=== PATIENT | female | born 1950 | race Caucasian/White ===

== ENCOUNTER 2021-06-20 05:58 | Emergency (ER) | payer MEDICARE, OTHER ==
[~2021-06-20] VITALS: Ht 157.5 cm; Wt 97.7 kg
[2021-06-20] MEDS: METOPROLOL 5 MG/5 ML VIAL IV SCH ×3 (07:00→07:48)
[2021-06-20 07:21] LABS: BASO % 0.2 % (0.0-1.0); EOS # 0.1 10^3/uL (0.0-0.5); HEMATOCRIT 44.3 % (36.0-47.0); HEMOGLOBIN 15.5 g/dl (12.0-15.5); LYMPH # 2.1 10^3/uL (1.5-5.0); LYMPH % 34.8 % (24.0-44.0); MEAN CORPUSCULAR HEMOGLOBIN 30.2 pg (27.0-33.0); MEAN CORPUSCULAR VOLUME 86.4 fl (80.0-96.0); MONO # 0.6 10^3/uL (0.0-0.8); MONO % 9.9 % (2.0-8.0); NEUTROPHILS # 3.3 10^3/uL (1.5-8.5); NEUTROPHILS % 53.8 % (36.0-66.0); PLATELET COUNT, AUTOMATED 203 10^3/uL (150-450); RED BLOOD COUNT 5.13 10^6/uL (4.00-5.40); WHITE BLOOD COUNT 6.1 10^3/uL (4.0-10.0)
[2021-06-20 07:53] LABS: BLOOD UREA NITROGEN 19 MG/DL (7-18); CALCIUM LEVEL 9.4 MG/DL (8.8-10.2); CARBON DIOXIDE LEVEL 30 MEQ/L (21-32); CHLORIDE LEVEL 106 MEQ/L (98-107); CREATININE FOR GFR 0.89 MG/DL (0.55-1.30); GLOMERULAR FILTRATION RATE > 60.0 (>39); GLUCOSE, FASTING 147 MG/DL (70-100); POTASSIUM SERUM 3.5 MEQ/L (3.5-5.1); SODIUM LEVEL 141 MEQ/L (136-145)
--- NOTE | 2021-06-20 07:57 | REPVR ---
PROCEDURE INFORMATION: Exam: XR Chest Exam date and time: 06/20/2021 6:35 AM Age: 71 years old Clinical indication: Other: Chest pain TECHNIQUE: Imaging protocol: XR of the chest. Views: 1 view. COMPARISON: No relevant prior studies available. FINDINGS: Lungs: Hyperinflation and interstitial prominence. Accessory azygos lobe. Pleural spaces: No pleural effusion. Heart/Mediastinum: Borderline cardiomegaly. Bones/joints: Mild degenerative change. IMPRESSION: Hyperinflation and interstitial prominence. Electronically signed by: Lalito Crespo On 06/20/2021 07:57:07 AM
[2021-06-20 08:03] LABS: FREE T4 1.12 NG/DL (0.76-1.46); MAGNESIUM LEVEL 1.4 MG/DL (1.8-2.4); THYROID STIMULATING HORMONE 0.687 uIU/ML (0.358-3.740)
[2021-06-20] MEDS ORDERED: METOPROLOL 5 MG/5 ML VIAL IV STA (08:16)
[2021-06-20] MEDS ORDERED: AMIODARONE HCL 150 MG in IV 1 EA IV STA (08:18)
[2021-06-20] MEDS ORDERED: METOPROLOL 5 MG/5 ML VIAL IV SCH (08:20)
[2021-06-20] MEDS ORDERED: MAG SULF 1GM/100ML (MAG RUN) 1 GM in IV 1 EA IV ONE (09:35)
--- OUTSIDE RECORDS SUMMARY | 2021-06-20 11:43 | CCD ---
Author Author [facility] Organization [facility] Address Unknown Phone Unavailable Care Team Providers Care Credit Card Associate Name Role Phone NO, PCP Unavailable Unavailable LAROCK, Amy MORRIS NP Unavailable Unavailable LAROCK, Amy MORRIS NP Unavailable Unavailable LAROCK, Amy MORRIS NP Unavailable Unavailable LAROCK, Amy MORRIS NP Unavailable Unavailable LAROCK, Amy MORRIS NP Unavailable Unavailable LAROCK, Amy MORRIS NP Unavailable Unavailable LAROCK, Amy MORRIS NP Unavailable Unavailable LAROCK, Amy MORRIS NP Unavailable Unavailable LAROCK, Amy MORRIS NP Unavailable Unavailable LAROCK, Amy MORRIS NP Unavailable Unavailable LAROCK, Amy MORRIS NP Unavailable Unavailable LAROCK, Amy MORRIS NP Unavailable Unavailable LAROCK, Amy MORRIS NP Unavailable Unavailable LAROCK, Amy MORRIS NP Unavailable Unavailable LAROCK, Amy MORRIS NP Unavailable Unavailable LAROCK, Amy MORRIS NP Unavailable Unavailable LAROCK, Amy MORRIS NP Unavailable Unavailable LAROCK, Amy MORRIS NP Unavailable Unavailable LAROCK, Amy MORRIS NP Unavailable Unavailable LAROCK, Amy MORRIS NP Unavailable Unavailable LAROCK, Amy MORRIS NP Unavailable Unavailable LAROCK, Amy MORRIS NP Unavailable Unavailable CAITLIN BARRERA MD Unavailable Unavailable CAITLIN BARRERA MD Unavailable Unavailable CAITLIN BARRERA MD Unavailable Unavailable CAITLIN BARRERA MD Unavailable Unavailable CAITLIN BARRERA MD Unavailable Unavailable CAITLIN BARRERA MD Unavailable Unavailable CAITLIN BARRERA MD Unavailable Unavailable CAITLIN BARRERA MD Unavailable Unavailable SABIHA, MAQBOOL MALA MD Unavailable Unavailable SABIHA, MAQBOOL MALA MD Unavailable Unavailable SABIHA, MAQBOOL MALA MD Unavailable Unavailable SABIHA, MAQBOOL MALA MD Unavailable Unavailable SABIHA, MAQBOOL MALA MD Unavailable Unavailable SABIHA, MAQBOOL MALA MD Unavailable Unavailable SABIHA, MAQBOOL MALA MD Unavailable Unavailable SABIHA, MAQBOOL MALA MD Unavailable Unavailable SABIHA, MAQBOOL MALA MD Unavailable Unavailable SABIHA, MAQBOOL MALA MD Unavailable Unavailable SABIHA, MAQBOOL MALA MD Unavailable Unavailable SABIHA, MAQBOOL MALA MD Unavailable Unavailable SABIHA, MAQBOOL MALA MD Unavailable Unavailable SABIHA, MAQBOOL MALA MD Unavailable Unavailable SABIHA, MAQBOOL MALA MD Unavailable Unavailable SABIHA, MAQBOOL MALA MD Unavailable Unavailable SABIHA, MAQBOOL MALA MD Unavailable Unavailable SABIHA, MAQBOOL MALA MD Unavailable Unavailable SABIHA, MAQBOOL MALA MD Unavailable Unavailable SABIHA, MAQBOOL MALA MD Unavailable Unavailable SABIHA, MAQBOOL MALA MD Unavailable Unavailable SABIHA, MAQBOOL MALA MD Unavailable Unavailable SABIHA, MAQBOOL MALA MD Unavailable Unavailable SABIHA, MAQBOOL MALA MD Unavailable Unavailable SABIHA, MAQBOOL MALA MD Unavailable Unavailable SABIHA, MAQBOOL MALA MD Unavailable Unavailable SABIHA, MAQBOOL MALA MD Unavailable Unavailable SABIAH, MAQBOOL MALA MD Unavailable Unavailable SABIHA, MAQBOOL MALA MD Unavailable Unavailable SABIHA, MAQBOOL MALA MD Unavailable Unavailable SABIHA, MAQBOOL MALA MD Unavailable Unavailable SABIHA, MAQBOOL MALA MD Unavailable Unavailable SABIHA, MAQBOOL MALA MD Unavailable Unavailable SABIHA, MAQBOOL MALA MD Unavailable Unavailable SABIHA, MAQBOOL MALA MD Unavailable Unavailable SABIHA, MAQBOOL MALA MD Unavailable Unavailable SABIHA, MAQBOOL MALA MD Unavailable Unavailable SABIHA, MAQBOOL MALA MD Unavailable Unavailable SABIHA, MAQBOOL MALA MD Unavailable Unavailable SABIHA, MAQBOOL MALA MD Unavailable Unavailable SABIHA, MAQBOOL MALA MD Unavailable Unavailable SABIHA, MAQBOOL MALA MD Unavailable Unavailable SABIHA, MAQBOOL MALA MD Unavailable Unavailable SABIHA, MAQBOOL MALA MD Unavailable Unavailable SABIHA, MAQBOOL MALA MD Unavailable Unavailable SABIHA, MAQBOOL MALA MD Unavailable Unavailable SABIHA, MAQBOOL MALA MD Unavailable Unavailable SABIHA, MAQBOOL MALA MD Unavailable Unavailable SABIHA, MAQBOOL MALA MD Unavailable Unavailable SABIHA, MAQBOOL MALA MD Unavailable Unavailable SABIHA, MAQBOOL MALA MD Unavailable Unavailable SABIHA, MAQBOOL MALA MD Unavailable Unavailable SABIHA, MAQBOOL MALA MD Unavailable Unavailable SABIHA, MAQBOOL MALA MD Unavailable Unavailable SABIHA, MAQBOOL MALA MD Unavailable Unavailable SABIHA, MAQBOOL MALA MD Unavailable Unavailable SABIHA, MAQBOOL MALA MD Unavailable Unavailable SABIHA, MAQBOOL MALA MD Unavailable Unavailable SABIHA, MAQBOOL MALA MD Unavailable Unavailable SABIHA, MAQBOOL MALA MD Unavailable Unavailable SABIHA, MAQBOOL MALA MD Unavailable Unavailable SABIHA, MAQBOOL MALA MD Unavailable Unavailable SABIHA, MAQBOOL MALA MD Unavailable Unavailable SABIHA, MAQBOOL MALA MD Unavailable Unavailable SABIHA, MAQBOOL MALA MD Unavailable Unavailable SABIHA, MAQBOOL MALA MD Unavailable Unavailable SABIHA, MAQBOOL MALA MD Unavailable Unavailable SABIHA, MAQBOOL MALA MD Unavailable Unavailable SABIHA, MAQBOOL MALA MD Unavailable Unavailable SABIHA, MAQBOOL MALA MD Unavailable Unavailable NONE Unavailable Unavailable SABIHA, MAQBOOL MALA MD Unavailable Unavailable SABIHA, MAQBOOL MALA MD Unavailable Unavailable SABIHA, MAQBOOL MALA MD Unavailable Unavailable SABIHA, MAQBOOL MALA MD Unavailable Unavailable SABIHA, MAQBOOL MALA MD Unavailable Unavailable SABIHA, MAQBOOL MALA MD Unavailable Unavailable SABIHA, MAQBOOL MLAA MD Unavailable Unavailable SABIHA, MAQBOOL MALA MD Unavailable Unavailable SABIHA, MAQBOOL MALA MD Unavailable Unavailable SABIHA, MAQBOOL MALA MD Unavailable Unavailable SABIHA, MAQBOOL MALA MD Unavailable Unavailable SABIHA, MAQBOOL MALA MD Unavailable Unavailable SABIHA, MAQBOOL MALA MD Unavailable Unavailable SABIHA, MAQBOOL MALA MD Unavailable Unavailable SABIHA, MAQBOOL MALA MD Unavailable Unavailable SABIHA, MAQBOOL MALA MD Unavailable Unavailable SABIHA, MAQBOOL MALA MD Unavailable Unavailable SABIHA, MAQBOOL MALA MD Unavailable Unavailable SABIHA, MAQBOOL MALA MD Unavailable Unavailable SABIHA, MAQBOOL MALA MD Unavailable Unavailable SABIHA, MAQBOOL MALA MD Unavailable Unavailable SABIHA, MAQBOOL MALA MD Unavailable Unavailable SABIHA, MAQBOOL MALA MD Unavailable Unavailable SABIHA, MAQBOOL MALA MD Unavailable Unavailable SABIHA, MAQBOOL MALA MD Unavailable Unavailable SABIHA, MAQBOOL MLAA MD Unavailable Unavailable SABIHA, MAQBOOL MALA MD Unavailable Unavailable SABIHA, MAQBOOL MALA MD Unavailable Unavailable SABIHA, MAQBOOL MALA MD Unavailable Unavailable SABIHA, MAQBOOL MALA MD Unavailable Unavailable SABIHA, MAQBOOL MALA MD Unavailable Unavailable SABIHA, MAQBOOL MALA MD Unavailable Unavailable SABIHA, MAQBOOL MALA MD Unavailable Unavailable SABIHA, MAQBOOL MALA MD Unavailable Unavailable SABIHA, MAQBOOL MALA MD Unavailable Unavailable SABIHA, MAQBOOL MALA MD Unavailable Unavailable SABIHA, MAQBOOL MALA MD Unavailable Unavailable SABIHA, MAQBOOL MALA MD Unavailable Unavailable SABIHA, MAQBOOL MALA MD Unavailable Unavailable SABIHA, MAQBOOL MALA MD Unavailable Unavailable SABIHA, MAQBOOL MALA MD Unavailable Unavailable SABIHA, MAQBOOL MALA MD Unavailable Unavailable SABIHA, MAQBOOL MALA MD Unavailable Unavailable SABIAH, MAQBOOL MALA MD Unavailable Unavailable SABIHA, MAQBOOL AMLA MD Unavailable Unavailable SABIHA, MAQBOOL MALA MD Unavailable Unavailable SABIHA, MAQBOOL MALA MD Unavailable Unavailable SABIHA, MAQBOOL MALA MD Unavailable Unavailable SABIHA, MAQBOOL MALA MD Unavailable Unavailable SABIHA, MAQBOOL MALA MD Unavailable Unavailable SABIHA, MAQBOOL MALA MD Unavailable Unavailable SABIHA, MAQBOOL MALA MD Unavailable Unavailable SABIHA, MAQBOOL MALA MD Unavailable Unavailable SABIHA, MAQBOOL MALA MD Unavailable Unavailable SABIHA, MAQBOOL MALA MD Unavailable Unavailable SABIHA, MAQBOOL MALA MD Unavailable Unavailable SABIHA, MAQBOOL MALA MD Unavailable Unavailable SABIHA, MAQBOOL MALA MD Unavailable Unavailable SABIHA, MAQBOOL MALA MD Unavailable Unavailable SABIHA, MAQBOOL MALA MD Unavailable Unavailable SABIHA, MAQBOOL MALA MD Unavailable Unavailable SABIHA, MAQBOOL MALA MD Unavailable Unavailable SABIHA, MAQBOOL MALA MD Unavailable Unavailable SABIHA, MAQBOOL MALA MD Unavailable Unavailable SABIHA, MAQBOOL MALA MD Unavailable Unavailable SABIHA, MAQBOOL MALA MD Unavailable Unavailable SABIHA, MAQBOOL MALA MD Unavailable Unavailable SABIHA, MAQBOOL MALA MD Unavailable Unavailable SABIHA, MAQBOOL AMLA MD Unavailable Unavailable SABIHA, MAQBOOL MALA MD Unavailable Unavailable SABIHA, MAQBOOL MALA MD Unavailable Unavailable SABIHA, MAQBOOL MALA MD Unavailable Unavailable SABIHA, MAQBOOL MALA MD Unavailable Unavailable SABIHA, MAQBOOL MALA MD Unavailable Unavailable SABIHA, MAQBOOL MALA MD Unavailable Unavailable SABIHA, MAQBOOL MALA MD Unavailable Unavailable SABIHA, MAQBOOL MALA MD Unavailable Unavailable SABIHA, MAQBOOL MALA MD Unavailable Unavailable Antione SANDHU MD Unavailable Unavailable Antione SANDHU MD Unavailable Unavailable Antione SANDHU MD Unavailable Unavailable Antione SANDHU MD Unavailable Unavailable Antione SANDHU MD Unavailable Unavailable Antione SANDHU MD Unavailable Unavailable Antione SANDHU MD Unavailable Unavailable Antione SANDHU MD Unavailable Unavailable CHANMANDYCO, C LAUREL MD Unavailable Unavailable Antione SANDHU MD Unavailable Unavailable Antione SANDHU MD Unavailable Unavailable Re-disclosure Warning The records that you are about to access may contain information from federally-assisted alcohol or drug abuse programs. If such information is present, then the following federally mandated warning applies: This information has been disclosed to you from records protected by federal confidentiality rules (42 CFR part 2). The federal rules prohibit you from making any further disclosure of this information unless further disclosure is expressly permitted by the written consent of the person to whom it pertains or as otherwise permitted by 42 CFR part 2. A general authorization for the release of medical or other information is NOT sufficient for this purpose. The Federal rules restrict any use of the information to criminally investigate or prosecute any alcohol or drug abuse patient.The records that you are about to access may contain highly sensitive health information, the redisclosure of which is protected by Article 27-F of the [facility] Public Health law. If you continue you may have access to information: Regarding HIV / AIDS; Provided by facilities licensed or operated by the [facility] Office of Mental Health; or Provided by the [facility] Office for People With Developmental Disabilities. If such information is present, then the following [facility] mandated warning applies: This information has been disclosed to you from confidential records which are protected by state law. State law prohibits you from making any further disclosure of this information without the specific written consent of the person to whom it pertains, or as otherwise permitted by law. Any unauthorized further disclosure in violation of state law may result in a fine or senior care sentence or both. A general authorization for the release of medical or other information is NOT sufficient authorization for further disc losure. Allergies and Adverse Reactions Type Description Substance Reaction Status Data Source(s ) No Known Drug Allergies No Known Drug Allergies [facility] Encounters Encounter Providers Location Date Indications Data Source(s ) Outpatient 05/06/2021 02:30:31 PM EDT - 021 03:01:28 PM EDT [facility] ([facility]) Outpatient Attender: MALA BARRERA MDConsultant: PCP NO 03/13/2021 02:21:00 PM EDT - 03/13/2021 03:21:00 PM EDT [facility] Attender: MALA BARRERA MD Medical Building 03/13 01:45:00 PM EDT [facility] (Mala Barrera [facility]) Emergency Attender: LAUREL SANDHU MDConsultant: PCP NOConsultant: NONE 02/20/2021 02:07:00 PM EDT - 02/20/2021 04:54:00 PM EDT [facility] Patient discharged. Outpatient Attender: ARTURO PARRA NP 12/21 08:14:13 AM EDT - 01/01/2021 08:22:44 AM EDT [facility] ([facility] ) Immunizations Vaccine Date Status Description Data Source(s) COVID-19 VACCINE Moderna 11/01/2020 12:00:00 AM EST completed [facility] Vaccine Series Complete: YESThis Data wa s Submitted to [facility] Via [facility]. COVID-19 VACCINE Moderna 10/04/2020 12:00:00 AM EST completed [facility] Vaccine Series Complete: NOThis Data was Submitted to [facility] [employer]. Medications Medication Brand Name Start Date Product Form Dose Route Admi nistrative Instructions Pharmacy Instructions Status Indications Reaction Description Data Source(s) Magnesium Oxide 400 MG Oral Tablet Magnesium Oxide 03/19/2021 12:00 :00 AM EDT ORAL active [facility] (Mala Barrera MD) Aspirin 81 MG Delayed Release Oral Tablet Aspirin 03/13/2021 1 2:00:00 AM EDT ORAL active [facility] (Mala Barrera MD) Insurance Providers Payer name Policy type / Coverage type Policy ID Covered green party ID Covered green party's relationship to lamar Policy Lamar Plan Information [place] [employer] [place] B [id number] Self [id number] / [id number] Self [id number] Self 01 [id number] [place] [employer] Medicare [place] B [id number] Self [id number] MEDICARE PART A -O/P [id number] 18 [id number] FOR LIFE -I/P [id number] 18 [id number] MEDICARE PART A -I/P [id number] 18 [id number] FOR LIFE -I/P [id number] 18 [id number] FOR LIFE [id number] [id number] FOR LIFE -O/P [id number] 18 [id number] MEDICARE [id number] MEDICARE PART A -O/P [id number] 18 [id number] FOR LIFE -O/P [id number] 18 [id number] Problems, Conditions, and Diagnoses Code Display Name Description Problem Type Effective Dates Data Source(s) M109 Gout, unspecified Gout, unspecified [id number]omagnesemia Hypomagnesemia Diagnosis 03/13/2021 02:21: 00 PM [facility] N390 Urinary tract infection, site not specif ied Urinary tract infection, site not specified Diagnosis 03/13/2021 02:21:00 PM [facility] E039 Hypothyroidism, unspecified Hypothyroidism, unspecifie d Diagnosis 03/13/2021 02:21:00 PM [facility] E785 Hyperlipidemia, unspecified Hyperlipidemia, unspecifie d Diagnosis 03/13/2021 02:21:00 PM [facility] D649 Anemia, unspecified Anemia, unspecified Diagnosis 0 03/13/2021 02:21:00 PM [facility] E119 Type 2 diabetes mellitus without complic ations Type 2 diabetes mellitus without complications Diagnosis [facility] Personal history of malignant neoplasm o f other parts of uterus Personal history of malignant neoplasm of other parts of uterus Diagnosis 02/20/2021 02:07:00 PM [facility] 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 (cu 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) use of aspirin Diagnosis 02/20/2021 02:07:00 PM [facility] I509 Heart failure, unspecified Heart failure, unspecified Diagnosis 02/20/2021 02:07:00 PM [facility] I110 Hypertensive heart disease with heart fa ilure Hypertensive heart disease with heart failure Diagnosis 02/20/2021 02:07:00 PM EDT [facility] [id number] Cellulitis of chest wall Cellulitis of chest wall Diag nosis 02/20/2021 02:07:00 PM EDT [facility] [id number] Cellulitis of face Cellulitis of face Diagnosis 08/2020 02:07:00 PM EDT [facility] L237 Allergic contact dermatitis due to plant s, except food Allergic contact dermatitis due to plants, except food Diagnosis 02/20/2021 02:07:00 PM EDT [facility] R21 Rash and other nonspecific skin eruption Rash and other nonspecific skin eruption Diagnosis 02/20/2021 02:07:00 PM EDT [facility] Surgeries/Procedures Procedure Description Date Indications Data Source(s) OFFICE OUTPATIENT NEW 45 MINUTES 03/13/2021 12:00:00 A M EDT [facility] (Mala Barrera MD) Results ID Date Data Source [id number] 05/06/2021 03:00:00 PM EDT [facility] Name Value Range Interpretation Code Description Data Anisha rce(s) Supporting Document(s) SARS-CoV-2 RNA Resp Ql YUAN+probe NOT DETECTED [facility] This lab was ordered by TALON carmona and reported by TALON Hawkins. ID Date Data Source [id number] 03/13/2021 02:26:00 PM EDT [facility] (Mala Barrera MD) Name Value Range Interpretation Code Description Data Anisha rce(s) Supporting Document(s) Laboratory test finding (navigational concept) 81.9 pg/mL 0.0-191.8 [facility] (Mala Barrera MD) Laboratory test finding (navigational concept) Laboratory test result [facility] (Mala Barrera MD) Test(s) [id number]-[address], Pl; [address] 23-Metanephrine, Pl was developed and its performance characteristics determined by [facility]. It has not been cleared or approved by the Food and Drug Administration. Laboratory test finding (navigational concept) 33.0 pg/mL 0.0-88.0 [facility] (Mala Barrera MD) ID Date Data Source [id number] 03/13/2021 02:26:00 PM EDT [facility] (Mala Barrera MD) Name Value Range Interpretation Code Description Data Anisha rce(s) Supporting Document(s) Thyrotropin [Units/volume] in Serum or Plasma by Detec tion limit <= 0.005 mIU/L 0.80 uIU/mL 0.47-5.01 [facility] (Mala Barrera MD) ID Date Data Source [id number] 03/13/2021 02:26:00 PM EDT [facility] (Mala Barrera MD) Name Value Range Interpretation Code Description Data Anisha rce(s) Supporting Document(s) Laboratory test finding (navigational concept) Laboratory test result [facility] (Mala Barrera MD) LIPID PANEL Laboratory test finding (navigational concept) 103 mg/dL 35-160 [facility] (Mala Barrera MD) Laboratory test finding (navigational concept) 230 mg/dL 1 31-200 Above high normal [facility] (Mala Barrera MD) Laboratory test finding (navigational concept) 2.7 3.2-4.4 Below low normal [facility] (Mala Barrera MD) Laboratory test finding (navigational concept) 85 mg/dL 29-86 [facility] (Mala Barrera MD) Laboratory test finding (navigational concept) 141 mg/dL 65-175 [facility] (Mala Barrera MD) Laboratory test finding (navigational concept) 1.66 1.47-3.22 [facility] (Mala Barrera MD) CVE RISK CHOL/HDL LDL/HDL MEN: 1/2 AVERAGE 3.43 1.00 AVERAGE 4.97 3.55 2X AVERAGE 9.55 6.25 3X AVERAGE 23.99 7.99 WOMEN: 1/2 AVERAGE 3.27 1.47 AVERAGE 4.44 3.22 2X AVERAGE 7.05 5.03 3X AVERAGE 11.04 6.14 ID Date Data Source [id number] 03/13/2021 02:26:00 PM EDT [facility] (Mala Barrera MD) Name Value Range Interpretation Code Description Data Anisha rce(s) Supporting Document(s) Laboratory test finding (navigational concept) Laboratory test result [facility] (Mala Barrera MD) COMPREHENSIVE METABOLIC PANEL Laboratory test finding (navigational concept) 140 meq/L 134-153 [facility] (Mala Barrera MD) Laboratory test finding (navigational concept) 103 meq/L 98-107 [facility] (Mala Barrera MD) Laboratory test finding (navigational concept) 3.9 meq/L 3.6-5.0 [facility] (Mala Barrera MD) Laboratory test finding (navigational concept) 94 mg/dL 70-99 [facility] (Mala Barrera MD) Laboratory test finding (navigational concept) 24 meq/L 22-30 [facility] (Mala Barrera MD) Laboratory test finding (navigational concept) 16 mg/dL 7-21 [facility] (Mala Barrera MD) Laboratory test finding (navigational concept) 0.7 mg/dL 0.7-1.5 [facility] (Mala Barrera MD) Laboratory test finding (navigational concept) 4.5 g/dL 3.9-5.0 [facility] (Mala Barrera MD) Laboratory test finding (navigational concept) 6.8 g/dL 6.3-8.2 [facility] (Mala Barrera MD) Laboratory test finding (navigational concept) 23 8-27 [facility] (Mala Barrera MD) Laboratory test finding (navigational concept) 2.3 GM/DL 2 .4-3.2 Below low normal [facility] (Mala Barrera MD) Laboratory test finding (navigational concept) 2.0 0.8-2.0 [facility] (Mala Barrera MD) Laboratory test finding (navigational concept) 0.7 mg/dL 0.2-1.3 [facility] (Mala Barrera MD) Laboratory test finding (navigational concept) 9.0 mg/dL 8.4-10.2 [facility] (Mala Barrera MD) Laboratory test finding (navigational concept) 78 U/L 38-126 [facility] (Mala Barrera MD) Laboratory test finding (navigational concept) 21 U/L 5-40 [facility] (Mala Barrera MD) Laboratory test finding (navigational concept) 70 yrs [facility] (Mala Barrera MD) Laboratory test finding (navigational concept) 13.0 mmol/L 8.0-16.0 [facility] (Mala Barrera MD) Laboratory test finding (navigational concept) 16 U/L 7-56 [facility] (Mala Barrera MD) Laboratory test finding (navigational concept) Laboratory test result [facility] (Mala Barrera MD) Male GFR Interprentation 20-49 yrs >60 mL/min Normal 50-59 yrs >56 mL/min Normal 60-69 yrs >49 mL/min Normal 70-79yrs >42 mL/min Normal 80 and above >35 mL/min Normal Female GFR Interpretation 20-39 yrs >60 mL/min Normal 40-49 yrs >58 mL/min Normal 50-59 yrs >51 mL/min Normal 60-69 yrs >45 mL/min Normal 70-79 yrs >39 mL/min Normal 80 and above >32 mL/min Normal Laboratory test finding (navigational concept) Laboratory test result [facility] (Mala Barrera MD) ID Date Data Source [id number] 03/13/2021 02:26:00 PM EDT [facility] (Mala Barrera MD) Name Value Range Interpretation Code Description Data Anisha rce(s) Supporting Document(s) Urate [Mass/volume] in Serum or Plasma 4.7 mg/dL 2.5-8.5 [facility] (Mala Barrera MD) Hemoglobin A1c/Hemoglobin.total in Blood 5.5 % 4.4-6.1 [facility] (Mala Barrera MD) {A1] {HB] Magnesium [Mass/volume] in Serum or Plasma 1.4 mg/dL 1.7-2.2 Belo w low normal [facility] (Mala Barrera MD) ID Date Data Source [id number] 03/13/2021 02:26:00 PM EDT [facility] (Mala Barrera MD) Name Value Range Interpretation Code Description Data Anisha rce(s) Supporting Document(s) Laboratory test finding (navigational concept) Laboratory test result [facility] (Mala Barrera MD) URINALYSIS Laboratory test finding (navigational concept) Laboratory test result [facility] (Mala Barrera MD) Laboratory test finding (navigational concept) Laboratory test result [facility] (Mala Barrera MD) Laboratory test finding (navigational concept) Laboratory test result [facility] (Mala Barrera MD) Laboratory test finding (navigational concept) 1.005 1.001-1.030 [facility] (Mala Barrera MD) Laboratory test finding (navigational concept) 5 5-9 [facility] (Mala Barrera MD) Laboratory test finding (navigational concept) Laboratory test result [facility] (Mala Barrera MD) Laboratory test finding (navigational concept) Laboratory test result [facility] (Mala Barrera MD) Laboratory test finding (navigational concept) Laboratory test result [facility] (Mala Barrera MD) Laboratory test finding (navigational concept) Laboratory test result [facility] (Mala Barrera MD) Laboratory test finding (navigational concept) Laboratory test result [facility] (Mala Barrera MD) Laboratory test finding (navigational concept) Laboratory test result [facility] (Mala Barrera MD) Laboratory test finding (navigational concept) Laboratory test result [facility] (Mala Barrera MD) Laboratory test finding (navigational concept) Laboratory test result [facility] (Mala Barrera MD) Laboratory test finding (navigational concept) Laboratory test result [facility] (Mala Barrera MD) ID Date Data Source [id number] 03/13/2021 02:26:00 PM EDT [facility] (Mala Barrera MD) Name Value Range Interpretation Code Description Data Anisha rce(s) Supporting Document(s) Laboratory test finding (navigational concept) Laboratory test result [facility] (Mala Barrera MD) COMPLETE BLOOD COUNT Laboratory test finding (navigational concept) 5.17 10^6/uL 4.20-5.40 [facility] (Mala Barrera MD) Laboratory test finding (navigational concept) 5.2 10^3/uL 4.2-11.0 [facility] (Mala Barrera MD) Laboratory test finding (navigational concept) 15.7 g/dL 12.0-16.0 [facility] (Mala Barrera MD) Laboratory test finding (navigational concept) 85.5 fL 81.0-101 [facility] (Mala Barrera MD) Laboratory test finding (navigational concept) 44.2 % 37.0-47.0 [facility] (Mala Barrera MD) Laboratory test finding (navigational concept) 35.5 g/dL 31.0-36.0 [facility] (Mala Barrera MD) Laboratory test finding (navigational concept) 30.4 pg 27.0-34.0 [facility] (Mala Barrera MD) Laboratory test finding (navigational concept) 203 10^3/uL 150-450 [facility] (Mala Barrera MD) Laboratory test finding (navigational concept) 11.9 % 11.5-14.5 [facility] (Mala Barrera MD) Laboratory test finding (navigational concept) 10.3 fL 7.4-10.4 [facility] (Mala Barrera MD) Laboratory test finding (navigational concept) 52.6 % 37.0-80.0 [facility] (Mala Barrera MD) Laboratory test finding (navigational concept) 37.3 % 25.0-40.0 [facility] (Mala Barrera MD) Laboratory test finding (navigational concept) 9.1 % 3.0-8.0 Above high normal [facility] (Mala Barrera MD) Laboratory test finding (navigational concept) 0.8 % 0.0-7.0 [facility] (Mala Barrera MD) Laboratory test finding (navigational concept) 0.2 % 0.0-2.5 [facility] (Mala Barrera MD) Laboratory test finding (navigational concept) 0.0 % 0.0-0.0 [facility] (Mala Barrera MD) Laboratory test finding (navigational concept) 0.0 % 0.0-0.0 [facility] (Mala Barrera MD) Laboratory test finding (navigational concept) 1.93 10^3/uL 0.60-3.40 [facility] (Mala Barrera MD) Laboratory test finding (navigational concept) 2.72 10^3/uL 2.00-6.90 [facility] (Mala Barrera MD) Laboratory test finding (navigational concept) 0.47 10^3/uL 0.00-0.90 [facility] (Mala Barrera MD) Laboratory test finding (navigational concept) 0.04 10^3/uL 0.00-0.70 [facility] (Mala Barrera MD) Laboratory test finding (navigational concept) 0.01 10^3/uL 0.00-0.20 [facility] (Mala Barrera MD) Laboratory test finding (navigational concept) 0.00 10^3/uL 0.00-0.00 [facility] (Mala Barrera MD) Laboratory test finding (navigational concept) 0.00 10^3/uL 0.00-0.10 [facility] (Mala Barrera MD) Laboratory test finding (navigational concept) Laboratory test result [facility] (Mala Barrera MD) Laboratory test finding (navigational concept) Laboratory test result [facility] (Mala Barrera MD) ID Date Data Source [id number] 03/21/2021 06:32:[address] [facility] Value Range Interpretation Code Description Data Anisha rce(s) Supporting Document(s) METANEPHRINE FRACTIONATED [facility] Test(s) 871447-Fzzctsvczaknutd, Pl; 0700 23-Metanephrine, Plwas developed and its performance characteristics determinedby [facility]. It has not been cleared or approved by the Foodand Drug Administration. Normetanephrine [Mass/volume] in Serum or Plasma 81.9 pg/mL 0.0-191.8 [facility] Metanephrine Free [Mass/volume] in Serum or Plasma 33.0 pg/mL 0.0-88. 0 [facility] ID Date Data Source [id number] 03/13/2021 07:18:[address] [facility] Value Range Interpretation Code Description Data Anisha rce(s) Supporting Document(s) Magnesium [Mass/volume] in Serum or Plasma 1.4 MG/DL 1.7 - 2.2 L [facility] ID Date Data Source [id number] 03/13/2021 07:25:[address] [facility] Value Range Interpretation Code Description Data Anisha rce(s) Supporting Document(s) Thyrotropin [Units/volume] in Serum or Plasma by Detec tion limit <= 0.05 mIU/L 0.80 uIU/mL 0.47 - 5.01 [facility] ID Date Data Source [id number] 03/13/2021 07:18:00 PM EDT [facility] Name Value Range Interpretation Code Description Data Anisha rce(s) Supporting Document(s) CVE PANEL [facility] al LIPID PANEL Cholesterol [Mass/volume] in Serum or Plasma 230 MG/DL 131 - 200 H [facility] Deprecated Triglyceride [Mass/volume] in Serum or Plasma 103 MG/DL 3 5 - 160 [facility] HDL 85 MG/DL 29 - 86 [facility] Cholesterol in LDL [Mass/volume] in Serum or Plasma by Direc t assay 141 mg/dL 65 - 175 [facility] Cholesterol.total/Cholesterol in HDL [Mass Ratio] in Serum o r Plasma 2.7 3.2 - 4.4 L [facility] LDL/HDL 1.66 1.47 - 3.22 [facility] ital CVE RISK CHOL/HDL LDL/HDLMEN: 1/2 AVERAGE 3.43 1.00 AVERAGE 4.97 3.55 2X AVERAGE 9.55 6.25 3X AVERAGE 23.99 7.99WOMEN: 1/2 AVERAGE 3.27 1.47 AVERAGE 4.44 3.22 2X AVERAGE 7.05 5.03 3X AVERAGE 11.04 6.14 ID Date Data Source [id number] 03/13/2021 07:18:00 PM EDT [facility] Name Value Range Interpretation Code Description Data Anisha rce(s) Supporting Document(s) COMPREHENSIVE METABOLIC PANEL [facility] COMPREHENSIVE METABOLIC PANEL Sodium [Moles/volume] in Serum or Plasma 140 mEq/L 134 - 153 [facility] Potassium [Moles/volume] in Serum or Plasma 3.9 mEq/L 3.6 - 5.0 [facility] Chloride [Moles/volume] in Serum or Plasma 103 mEq/L 98 - 107 [facility] Carbon dioxide, total [Moles/volume] in Serum or Plasma 24 MEQ/L 22 - 30 [facility] Glucose [Mass/volume] in Serum or Plasma 94 MG/DL 70 - 99 [facility] BUN 16 MG/DL 7 - 21 [facility] al Creatinine [Mass/volume] in Serum or Plasma 0.7 MG/DL 0.7 - 1.5 [facility] BUN/CREAT 23 8 - 27 [facility] al Protein [Mass/volume] in Serum or Plasma 6.8 G/DL 6.3 - 8.2 [facility] Albumin [Mass/volume] in Serum or Plasma 4.5 G/DL 3.9 - 5.0 [facility] Globulin [Mass/volume] in Serum by calculation 2.3 GM/DL 2.4 - 3.2 L [facility] A/G RATIO 2.0 0.8 - 2.0 [facility] Calcium [Mass/volume] in Serum or Plasma 9.0 MG/DL 8.4 - 10.2 [facility] Bilirubin.total [Mass/volume] in Serum or Plasma 0.7 MG/DL 0.2 - 1.3 [facility] Alkaline phosphatase [Enzymatic activity/volume] in Serum or Plasma 78 U/L 38 - 126 [facility] Aspartate aminotransferase [Enzymatic activity/volume] in Serum or Plasma 21 U/L 5 - 40 [facility] Alanine aminotransferase [Enzymatic activity/volume] in Seru m or Plasma 16 U/L 7 - 56 [facility] Anion gap 3 in Serum or Plasma 13.0 mmol/L 8.0 - 16.0 [facility] AGE 70 yrs [facility] al NON-AA GFR >60 mL/min [facility] ital AFR AMER GFR >60 [facility] Male GFR In terprentation 20-49 yrs >60 mL/min Normal 50-59 yrs >56 mL/min Normal 60-69 yrs >49 mL/min Normal 70-79yrs >42 mL/min Normal 80 and above >35 mL/min Normal Female GFR Interpretation 20-39 yrs >60 mL/min Normal 40-49 yrs >58 mL/min Normal 50-59 yrs >51 mL/min Normal 60-69 yrs >45 mL/min Normal 70-79 yrs >39 mL/min Normal 80 and above >32 mL/min Normal ID Date Data Source [id number] 03/13/2021 07:15:00 PM EDT [facility] Name Value Range Interpretation Code Description Data Anisha rce(s) Supporting Document(s) Urate [Mass/volume] in Serum or Plasma 4.7 MG/DL 2.5 - 8.5 [facility] ID Date Data Source [id number] 03/13/2021 03:22:00 PM EDT [facility] Name Value Range Interpretation Code Description Data Anisha rce(s) Supporting Document(s) Hemoglobin A1c/Hemoglobin.total in Blood 5.5 % 4.4 - 6.1 [facility] {A1]{HB] ID Date Data Source [id number] 03/13/2021 02:47:00 PM EDT [facility] Name Value Range Interpretation Code Description Data Anisha rce(s) Supporting Document(s) URINALYSIS [facility] tenisha UR[facility] SOURCE [facility] yellow NORMAL: Yellow [facility] CLARITY clear NORMAL: Clear [facility] Specific gravity of Urine by Test strip 1.005 1.001 - 1.030 [facility] pH 5 5 - 9 [facility] Glucose [Mass/volume] in Urine by Test strip NORM NORMAL: Negat [facility] Bilirubin.total [Presence] in Urine by Test strip NEG NORMAL: Negative [facility] Ketones [Presence] in Urine by Test strip NEG NORMAL: Negative [facility] Protein [Mass/volume] in Urine by Test strip NEG [facility]AL[facility] N[facility] [Presence] in Urine by Test strip NEG NORMAL: Negative [facility] BLOOD NEG NORMAL: Negative [facility] LEUK EST NEG NORMAL: Negative [facility] Urobilinogen [Mass/volume] in Urine by Test strip NOR less jerzy n 1.0 mg/dL [facility] MICROSCOPIC Not Indicate [facility] ID Date Data Source [id number] 03/13/2021 02:42:00 PM EDT [facility] Name Value Range Interpretation Code Description Data Anisha rce(s) Supporting Document(s) CBC W/AUTOMATED DIFF [facility] COMPLETE BLOOD COUNT Leukocytes [#/volume] in Blood by Automated count 5.2 10^3/uL 4.2 - 1 1.0 [facility] Erythrocytes [#/volume] in Blood by Automated count 5.17 10^6/uL 4. 20 - 5.40 [facility] Hemoglobin [Mass/volume] in Blood 15.7 g/dL 12.0 - 16.0 [facility] Hematocrit [Volume Fraction] of Blood by Automated count 44.2 % 3 7.0 - 47.0 [facility] Erythrocyte mean corpuscular volume [Entitic volume] by Auto mated count 85.5 fL 81.0 - 101 [facility] Erythrocyte mean corpuscular hemoglobin [Entitic mass] by Automated count 30.4 pg 27.0 - 34.0 [facility] Erythrocyte mean corpuscular hemoglobin concentration [Mass/volume] by Automated count 35.5 g/dL 31.0 - 36.0 [facility] Erythrocyte distribution width [Ratio] by Automated count 11.9 % 11.5 - 14.5 [facility] Platelets [#/volume] in Blood by Automated count 203 10^3/uL 150 - 45 0 [facility] Platelet mean volume [Entitic volume] in Blood by Automated count 10.3 fL 7.4 - 10.4 [facility] Neutrophils/100 leukocytes in Blood by Automated count 52.6 % 37. 0 - 80.0 [facility] Lymphocytes/100 leukocytes in Blood by Manual count 37.3 % 25.0 - 40.0 [facility] Monocytes/100 leukocytes in Blood by Automated count 9.1 % 3.0 - 8.0 H [facility] Eosinophils/100 leukocytes in Blood by Automated count 0.8 % 0.0 - 7.0 [facility] Basophils/100 leukocytes in Blood by Automated count 0.2 % 0.0 - 2.5 [facility] %IG 0.0 % 0.0 - 0.0 [facility] %NRBC 0.0 % 0.0 - 0.0 [facility] al Neutrophils [#/volume] in Blood by Automated count 2.72 10^3/uL 2.00 - 6.90 [facility] Lymphocytes [#/volume] in Blood by Automated count 1.93 10^3/uL 0.60 - 3.40 [facility] Monocytes [#/volume] in Blood by Automated count 0.47 10^3/uL 0.00 - 0.90 [facility] Eosinophils [#/volume] in Blood by Automated count 0.04 10^3/uL 0.00 - 0.70 [facility] Basophils [#/volume] in Blood by Automated count 0.01 10^3/uL 0.00 - 0.20 [facility] #IG 0.00 10^3/uL 0.00 - 0.10 [facility] #NRBC 0.00 10^3/uL 0.00 - 0.00 [facility]spital MANUAL DIFF NOT INDICATED [facility] RBC MORPH NOT INDICATED [facility] spital ID Date Data Source [id number] 02/20/2021 02:07:00 PM EDT [facility] 1 OrderSheet [facility] Emergency Department [address] [place] [address] Phone #: ext- [phone] 02/20/2021 14:07 Patient: DAQUAN AMAYA Sex: F : 1950 Age: 70yWEIGHT:97.5 kg (S)ALLERGIES: No Known Drug AllergyCHIEF COMPLAINT: skin rashDIAGNOSIS: Cellulitis of skin, Contact dermatitis due to poison ivyLAB ORDERSOrder Description Priority Entered Acknowledged InitialedDIAGNOSTIC STUDY ORDERSOrder Description Priority Entered Acknowledged InitialedMEDICATION/IV/DRIP/FLUID ORDERSOrder Description Priority Entered Acknowledged InitialedTylenol 1 g PO X1 15:41 02/20/2021 15:53 Eneida,dose: 1000 mg Tavon Fowler R.N.(NOW x1) P.A.-C;Dexamethasone IM 15:41 02/20/2021 15:53 Eneida,8 mg Tavon Fowler R.N. P.A.-C;GENERAL ORDERSOrder Description Priority Entered Acknowledged In itialed[Electronically signed by Malcolm Monique R.N. (18:49 02/20/2021)][Electronically signed by Tavon Manuel P.A.-C (11:22 02/21/2021)][Electronically locked by Malcolm Monique R.N. (18:49 02/20/2021)] Name Value Range Interpretation Code Description Data Anisha rce(s) Supporting Document(s) ID Date Data Source [id number] 02/20/2021 02:07:00 PM EDT [facility] 1 Medication Reconciliation Report [facility] Emergency Department [address] [place] [address] Phone #: ext- [phone] 02/20/2021 14:07 Patient: DAQUAN AMAYA Sex: F : 1950 Age: 70yWeight: 97.5 kgHeight/Length: 62 in.BMI: 39.4ALLERGIES: No Known Drug AllergyThe patient's Home Medications are listed below:CONTINUE TAKING THE FOLLOWING MEDICATIONS: Aspirin 81 Oral Labetalol HCl Oral Lisinopril Oral NexIUM OralThe source(s) of the original Home Medication information:Not obtained.The following Medications were given to the patient in the Emergency Department:Tylenol [PO] PO 1000 mg, administered: 15:53 1Dexamethasone [IM] IM 8 mg, administered: 15:53 02/20/2021The following Medications were prescribed to the patient:prednisone 50 mg tablet Take 1 tablet once a day with meals for 5 days -- start 0Efus73. Dispense 5tablet. Refills: 0. Substitution permitted.Pharmacy - [id number] - [address] [place], [place] [id number]. .cephalexin 500 mg capsule Take 1 capsule three times a day for 7 days -- Start today. Dispense 21capsule. Refills: 0. Substitution permitted.[id number] [id number]. . 2 Medication Reconciliation Report [facility] Emergency Department [address] [place] [address] Phone #: ext- [phone] 02/20/2021 14:07 Patient: DAQUAN AMAYA Sex: F : 1950 Age: 70yZyrtec 10 mg tablet Take 1 tablet once a day for 15 days -- Dispense 15 tablet. Refills: 0. Substitutionpermitted.[id number] [phone]. .hydroxyzine HCl 25 mg tablet Take 1 tablet twice a day for 5 days -- Anti-Itch. Dispense 10 tablet.Refills: 0. Substitution permitted.[facility] #[id number] [place] [id number]. . -- Tavon Manuel P.A.-C Name Value Range Interpretation Code Description Data Anisha rce(s) Supporting Document(s) ID Date Data Source [id number] 02/20/2021 02:07:00 PM EDT [facility] 1 Medication Administration Record [facility] Emergency Department [address] [place] [address] Phone #: [phone] oft- [phone] 02/20/2021 14:07 Patient: DAQUAN AMAYA Sex: F : 1950 Age: 70yWeight: 97.5 kgHeight/Length: 62 inBMI: 39.4ALLERGIES: No Known Drug Allergy Date/Time Medication Administered Medication OrderedGiven TYLENOL [PO] (APAP) Tylenol 1 g PO X1 dose: 1000 mg15:53 02/20/2021 Dose: 1000 mg Capsules PO (NOW x1)Malcolm Monique R.N.Given DEXAMETHASONE [IM] Dexamethasone IM 8 mg15:53 02/20/2021 Dose: 8 mg IMSMalcolm carlson R.N. Name Value Range Interpretation Code Description Data Anisha rce(s) Supporting Document(s) ID Date Data Source [id number] 02/20/2021 02:07:00 PM EDT [facility] 1 General Instructions [facility] Emergency Department [address] [place] [address] Phone #: ext- [phone] 02/20/2021 14:07 Patient: DAQUAN AMAYA Sex: F : 1950 Age: 70yModerate poison ivyCellulitis of the chin and chest wall.INSTRUCTIONSTake Tylenol (Acetaminophen) or Motrin (Ibuprofen) as needed for fever control. Take medicationaccording to label instructions.No dietary restrictions. Do not smoke.(Recommend to utilize OTC Motrin and Tylenol to control inflammation and pain management.Recommend to follow the instructions on the bottle and not to exceed.).Warnings: Further evaluation is necessary.GENERAL WARNINGS: Return or contact your physician immediately if your condition worsens orchanges unexpectedly, if not improving as expected, or if other problems arise.Your Current Medications: Your current home medications have been reviewed.CONTINUE TAKING THE FOLLOWING MEDICATIONS:Aspirin 81 Oral.Labetalol HCl Oral.Lisinopril Oral.NexIUM Oral.Prescription Medications:prednisone 50 mg tablet Take 1 tablet once a day with meals for 5 days -- start 6Buln92. Dispense 5tablet. Refills: 0. Substitution permitted.[id number] [phone] FaxNumber: [phone].cephalexin 500 mg capsule Take 1 capsule three times a day for 7 days -- Start today. Dispense 21capsule. Refills: 0. Substitution permitted.[id number] [address] [place], [place] [phone]. .Zyrtec 10 mg tablet Take 1 tablet once a day for 15 days -- Dispense 15 tablet. Refills: 0. Substitutionpermitted.[id number] [place], [place] [phone]. . 2 General Instructions [facility] Emergency Department [address] [place], [place] [address] Phone #: ext- [phone] 02/20/2021 14: 07 Patient: DAQUAN AMAYA Sex: F : 1950 Age: 70yhydroxyzine HCl 25 mg tablet Take 1 tablet twice a day for 5 days -- Anti-Itch. Dispense 10 tablet.Refills: 0. Substitution permitted.[id number] [place], [place] [phone]. .Follow-up:Return to the emergency department as needed. Follow up with your healthcare provider in about twodays if not better. Call for an appointment.Understanding of the discharge instructions verbalized by patient. ADDITIONAL INFORMATIONMikayla Nunn have a rash and itching. This is a delayed reaction to the oils of the poison kirby plant. You likelycame in contact with it during the 3 days before your symptoms started. Your skin will become redand itchy. Small blisters may appear. These can break and leak a clear yellow fluid. This fluid is notcontagious. The reaction usually starts to go away after 1 to 2 weeks. But it may take 4 to 6 weeks tofully clear.Home careFollow these guidelines when caring for yourself at home: The plant oils still on your skin or clothes can be spread to other places on your body. They can also be passed on to other people and cause a similar reaction. That's why it's important 3 General Instructions [facility] Emergency Department [address] [place] [address] Phone #: ext- [phone] 02/20/2021 14:07 Patient: DAQUAN AMAYA Sex: F : 1950 Age: 70y to wash all of the plant oils off your skin and any clothes that may have been exposed. Wash all clothes that you were wearing. Use hot water with ordinary laundry detergent. Dogs and cats that have been in poison kirby may not get a rash, but the oil may be on their fur. Be sure to wash your pets, too. Don't use rwby-gqc-nhgqaws antibiotic creams such as neomycin or bacitracin. These may make the rash worse. Stay away from anything that heats up your skin. This includes hot showers or baths, or direct sunlight. These can make itching worse. Put a cold compress on areas that are leaking (weeping), or on blistered areas. Do this for 30 minutes 3 times a day. To make a cold compress, dip a wash cloth in a mixture of 1 pint of cold water and 1 packet of astringent or oatmeal bath powder. Keep the solution in the refrigerator for future use. If large areas of skin are affected, take a lukewarm bath. Add colloidal oatmeal, or 1 cup of cornstarch or baking soda to the water. For a rash in a smaller area, use hydrocortisone cream for redness and irritation. But don't use this if another medicine was prescribed. For severe itching, put an ice pack on the area. To make an ice pack, put ice cubes in a plastic bag that seals at the top. Wrap the bag in a clean, thin towel or cloth. Never put ice or an ice pack directly on the skin. Xese-tzt-mrkkrie products that have calamine lotion may also be helpful. You can also use an oral antihistamine medicine with diphenhydramine for itching, unless another medicine was prescribed. This medicine may make you sleepy. So use lower doses during the daytime and higher doses at bedtime. Don't use medicine that has diphenhydramine if you have glaucoma. Also don't use it if you are a man who has trouble urinating because of an enlarged prostate. Antihistamines with loratidine cause less drowsiness. They are a good choice for daytime use. For severe cases, your provider may prescribe oral steroid medicines. Always take these exactly as prescribed.Follow-up careFollow up with your healthcare provider, or as directed. Call your provider if your rash gets worseor you are not starting to get better after 1 week of treatment.When to seek medical adviceCall your healthcare provider or seek medical attention right away if any of these occur: Spreading facial rash with swollen mouth or eyelids 4 General Instructions [facility] Emergency Department [address] [place] [address] Phone #: oxj- [phone] 02/20/2021 14:07 [id number] 1950 Age: 70y Rash that spreads to the groin and causes swelling of the penis, scrotum, or vaginal area Trouble urinating because of swelling in the genital areaAlso call your provider if you have signs of infection in the areas of broken blisters: Spreading redness Pus or fluid draining from the blisters Yellow-brown crusts form over the open blisters Fever of 100.4F (38.0C), or as directed by your providerCall 911Call 911 if you have trouble breathing or swallowing. Or if you have severe swelling on your face,eyelids, mouth, throat, or tongue. [phone] [employer]. [address] [place] [address]. All rights reserved. This information is not intended as asubstitute for professional medical care. Always follow your healthcare professional's instructions.CellulitisCellulitis is an infection of the deep layers of skin. A break in the skin, such as a cut or scratch, can letbacteria under the skin. If the bacteria get to deep layers of the skin, it can be serious. If not treated,cellulitis can get into the bloodstream and lymph nodes. The infection can then spread throughout thebody. This causes serious illness.Cellulitis causes the affected skin to become red, swollen, warm, and sore. The reddened areas havea visible border. An open sore may leak fluid (pus). You may have a fever, chills, and pain.Cellulitis is treated with antibiotics taken for 7 to 10 days. An open sore may be cleaned and coveredwith cool wet gauze. Symptoms should get better 1 to 2 days after treatment is started. Make sure totake all the antibiotics for the full number of days until they are gone. Keep taking the medicine even ifyour symptoms go away.Home careFollow these tips: Limit the use of the part of your body with cellulitis. If the infection is on your leg, keep your leg raised while sitting. This helps reduce swelling. Take all of the antibiotic medicine exactly as directed until it is gone. Don't miss any doses, especially during the first 7 days. Don't stop taking the medicine when your symptoms get 5 General Instructions [facility] Emergency Department [address] [place] [address] Phone #: ext- [phone] 02/20/2021 14:07 Patient: DAQUAN AMAYA Sex: F : 1950 Age: 70y better. Keep the affected area clean and dry. Wash your hands with soap and clean, running water before and after touching your skin. Anyone else who touches your skin should also wash his or her hands. Don't share towels.Follow-up careFollow up with your healthcare provider, or as advised. If your infection doesn't go away on the firstantibiotic, your healthcare provider will prescribe a different one.When to seek medical adviceCall your healthcare provider right away if any of these occur: Red areas that spread Swelling or pain that gets worse Fluid leaking from the skin (pus) Fever higher of 100.4 F (38.0 C) or higher after 2 days on antibiotics [phone] [employer]. [address] [place] [address]. All rights reserved. This information is not intended as asubstitute for professional medical care. Always follow your healthcare professional's instructions. You have been given the following additional information: Poison Kirby Rash Cellulitis(Electronically signed by Tavon Manuel P.A.-C 02/21/2021 11:22) Name Value Range Interpretation Code Description Data Anisha rce(s) Supporting Document(s) ID Date Data Source [id number] 02/20/2021 02:07:00 PM EDT [facility] 1 Clinical Report - Nurses [facility] Emergency Department [address] [place] [address] Phone #: ext- [phone] 02/20/2021 14:07 [id number] Sex[facility] : 1950 Age: 70yTRIAGEHistorian: patient. ( patient states she has poison kirby).Triage time: 14:35 02/20/2021. Acuity: LEVEL 4.Chief Complaint: SKIN RASH.Alert. No acute distress.Onset. (6 days ago). It is described as itchy. --14:42 02/20/21 Malcolm Monique R.N.14:35 02/20/21. BP: 124/86 taken on the left arm, manually. MAP: 98. HR: 98. RR: 16. O2 saturation:98%. Temp: 97.9 F. Pain level now: 0/10. 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 --15:11 02/20/21 Malcolm Monique R.N.Weight: 97.5 kg stated. Height/Length: 62 inches Per Patient. BMI: 39.4. --14:35 02/20/21 Malcolm Monique R.N.MedicationsLisinopril Oral. --15:40 02/20/21 Srinivasa Lopez.A.- C Labetalol HCl Oral. --15:40 02/20/21 Tavon Manuel P.A.-C NexIUM Oral. --15:40 02/20/21 Srinivasa Lopez.A.-C Aspirin 81 Oral. --15:40 02/20/21 Srinivasa Lopez.A.-C.AllergiesNo Known Drug Allergy. --15:35 02/20/21 Debbi Macario RN.PROBLEMS:Gastroesophageal Reflux Disease.GERD.Congestive Heart Failure.Dyspnea.Hypertension.Hyperthyroidism.GI Disease.Hypertension. --15:36 02/20/21 Debbi Macario RNUterine Cancer. --16:23 02/20/21 Malcolm Monique R.N. 2 Clinical Report - Nurses [facility] Emergency Department [address] [place] [address] Phone #: ext- [phone] 02/20/2021 14:07 [id number] Sex[facility] F : 1950 Age: 70y ADDITIONAL SURGERIES: Endoscopy. Hernia Repair. Tubal Ligation. --15:36 02/20/21 Debbi Macario RN Ectopic . Tubal Ligation. Umbilical Hernia Repair. Ventral hernia repair. --16:23 02/20/21 Malcolm Harry R.N. History SOCIAL HX: Never smoker. Occasional alcohol use. No drug use. She was offered HIV testing but declined and hepatitis C testing but declined. She has not traveled outside the [place] Infectious disease exposure: No infectious disease exposure. The patient was not exposed to Coronavirus. SELF HARM ASSESSMENT: Self harm assessment was performed. The patient answered "no" to the question(s) "Have you recently felt down, depressed, or hopeless?", "Do you have thoughts of harming or killing yourself?", "Do you have a plan for harming or killing yourself?" and "Have you recently had thoughts about harming or killing others?". ABUSE ASSESSMENT: No report of abuse. FALL RISK ASSESSMENT: Fall risk assessment completed. Risk factors identified include patient age greater than 65 years. --14:42 02/20/21 Malcolm Monique R.N. Assessment The patient states feels the same. --14:42 02/20/21 Malcolm Monique R.N. Interventions Identification band on patient. --14:42 02/20/21 Malcolm Monique R.N.PHYSICAL [id number]:43 02/20/21. Ambulatory to room.GENERAL / NEURO / PSYCH: Alert. The patient does not appear to be in acute distress. Oriented X 4.HEENT: Mucous membranes are pink.RESPIRATORY: Respirations not labored. Breath sounds within normal limits.CVS: Capillary refill less than 2 seconds.GI / : Abdomen nontender.SKIN: Skin is intact, warm, dry and non-tender. Generalized well- demarcated skin rash present. Normalskin turgor. --14:43 02/20/21 Malcolm Monique R.N.NURSING PROGRESS NOTES14:43 02/20/21. Reassurance given. Two patient identifiers checked. Call light placed in reach. Bedplaced in lowest position. Brakes of bed on. Patient ready for evaluation- PA notified. --14:43 02/20/21Malcolm Monique R.N. 3 Clinical Report - Nurses [facility] Emergency Department [address] [place] [address] Phone #: ext- [phone] 02/20/2021 14:07 Patient: DAQUAN AMAYA Sex: F : 1950 Age: 70y 15:53 02/20/2021 Tylenol (APAP) PO Capsules 1000 mg given. Allergies verified and confirmed 5 rights. Information reviewed with patient including reason for taking this medication, signs of allergic reaction and precautions. Verbalizes understanding. --15:53 02/20/21 Malcolm Monique R.N. 15:53 02/20/2021 Dexamethasone IM 8 mg given. Given in the left deltoid. Allergies verified and confirmed 5 rights. Information reviewed with patient including reason for taking this medication, signs of allergic reaction and precautions. Verbalizes understanding. --15:53 02/20/21 Malcolm Monique R.N.DISPOSITION / DISCHARGE Departure time: 16:53 02/20/2021. Condition at departure: improved and stable. The goals identified in the patient's plan of care were met. Fall risk assessment completed. Risk factors identified include patient age greater than 65 years. No learning barriers present. Reviewed warnings. Reviewed medication(s) side effects, precautions, dosing and course information. Prescription(s) sent electronically to pharmacy. Treatments reviewed. Reviewed referral to a primary care physician. Patient verbalized understanding. Written instructions provided in Guatemalan. The patient was discharged by the physician physical therapy assistant instructor. She was discharged home. She left ambulatory and via private vehicle. Patient driving. --16:54 02/20/21 Malcolm Monique R.N. 16:53 02/20/21. BP: deferred. HR: deferred. RR: deferred. O2 saturation: deferred. Temp: deferred. Pain level now: 0/10. --16:54 02/20/21 Malcolm Monique R.N.Locked/Released at 02/20/2021 18:49 by Malcolm Monique R.N. Name Value Range Interpretation Code Description Data Anisha rce(s) Supporting Document(s) ID Date Data Source [id number] 02/20/2021 02:07:00 PM EDT [facility] 1 Clinical Report - Physicians/Mid Levels [facility] Emergency Department [address] [place] [address] Phone #: ext- [phone] 02/20/2021 14:07 Patient: DAQUAN AMAYA Sex: F : 1950 Age: 70y Time Seen: 15:41 02/20/2021; initial patient contact, initial documentation. Arrived- By private vehicle. Historian- patient. Disposition decision: 16:10 02/20/2021.HISTORY OF PRESENT ILLNESS Chief Complaint: SKIN RASH. This started about 1 weeks ago. It is described as itchy. It has been located on the chest, right upper extremity and right lower extremity. A cause has been identified. She was recently exposed to poison kirby. (Pt sts she was pulling out poison kirby while waitin for a ride and ntoed that the rash has spread during this time.). Similar symptoms previously. None. Recent medical care: Not recently seen/assessed.REVIEW OF SYSTEMSNo fever, chills, sore throat, cough or difficulty breathing. No hoarseness, lump in throat, enlarged lymphnodes, headache or chest pain. No abdominal pain, nausea, diarrhea, difficulty with urination or joint pain.No vomiting. All other systems reviewed and are negative.PAST HISTORYSee nurses notes. Problems: Uterine Cancer. Gastroesophageal Reflux Disease. GERD. Congestive Heart Failure. Dyspnea. Hyper tension. Hyperthyroidism. GI Disease. Hypertension. Additional Surgeries: Ectopic . Endoscopy. Hernia Repair. Tubal Ligation. Tubal Ligation. Umbilical Hernia Repair. 2 Clinical Report - Physicians/Mid Levels [facility] Emergency Department [address] [place] [address] Phone #: ext- [phone] 02/20/2021 14:07 Patient: DAQUAN AMAYA Sex: F : 1950 Age: 70y Ventral hernia repair. Medications: Aspirin 81 Oral. NexIUM Oral. Labetalol HCl Oral. Lisinopril Oral. Allergies: No Known Drug Allergy.SOCIAL HISTORYNever smoker. Occasional alcohol use. No drug use.ADDITIONAL NOTESThe nursing notes have been reviewed.PHYSICAL EXAMVital Signs: 02/20/2021 14:35 BP: 124/86. MAP: 98. HR: 98. RR: 16. O2 saturation: 98%. Temp: 97.9 F.Pain level now: 0/10. Have been reviewed. Oxygen saturation normal.Appearance: Alert. Oriented X3. No acute distress.Head: Left mandible: mild erythema. Chin: erythema. No tenderness, swelling, laceration, abrasion orecchymosis. No puncture wound.Eyes: Eyelids appear normal to inspection. Conju nctivae and sclerae appear normal to inspection.Corneas appear normal to inspection. Pupils equal, round and reactive to light. EOMs intact. Periorbitalareas appear normal to inspection. Anterior chambers clear.ENT: Normal ENT inspection. Airway intact. TM's normal. Ears normal. Nose normal. Nares normal.Pharynx normal. Moist mucous membranes. Uvula midline. Voice normal.Neck: Neck supple.CVS: Normal heart rate and rhythm. No JVD present. Pulses normal. Capillary refill normal. Strongperipheral pulses. Heart sounds normal. Pulses: right radial 2+; left radial 2+.Respiratory: Chest normal on inspection. No respiratory distress. Lungs clear. Good chest movement.Breath sounds normal and equal.Skin: Skin warm. No tender indurated area. Rash present on the chest and face. Rash present on theright upper extremity and left upper extremity. The rash is urticarial and erythematous. Not vesicular orpustular. There is weeping.Neuro: Awake. Alert. Mood/affect normal. Speech normal. No motor deficit. No sensory deficit.Psych: Cognition normal. Thought process and content normal. Insight and judgement normal.PROGRESS AND PROCEDURESCourse of Care: NAD, AOx3, interacting well and appropriately, no use of accessory muscle, able tospeak full sentences, stable, non-toxic looking. Enter room and pt lying peacefully in bed in NAD. Patient stable. Denies any new issues, concerns, or complaints. 3 Clinical Report - Physicians/Mid Levels [facility] Emergency Department [address] [place] [address] Phone #: ext- [phone] 02/20/2021 14:07 Patient: DAQUAN AMAYA Sex: F : 1950 Age: 70y Pt presents to the ER with c/o rash to the chest, b/l UE, chin and jaw. sts that it started after exposure to poison kirby about 6 days ago. Sts that she was waiting for a ride and decided to remove barehanded and then started to itch and slowly started to spread to other parts of the body. Started on chest. PE demos NV intact b/l UE. Ntoed urticarial rash tohte chest, under R breast (Chaperoned present: Debbi Jesus RN.) and small patches to the b/l UE. A lso noted on chin ad L jaw line. ? early cellulitis. will tx for rash and cellulitis. Pt agrees. Discussed tx plan with pt. Discussed and counseled on stable condition. Discussed importance of a f/u with PCP. Discussed return to ER criteria. Answered their questions. Indicates and verbalizes that they understand, agree, and will comply with above. Denies any new questions or concerns. Patient has capacity to understand. Discharge decision based on the following: patient's condition is stable; patient's exam is stable; social support is adequate; transportation is available; follow-up is available. Dis cussed of OTC Motrin and Tylenol to control inflammation and pain management. Informed to follow directions on bottle that are appropriate for age and/or weight. Disposition: Discharged home in good and improved condition. Condition: good and stable.CLINICAL IMPRESSION Moderate poison kirby Cellulitis of the chin and chest wall.INSTRUCTIONS Take Tylenol (Acetaminophen) or Motrin (Ibuprofen) as needed for fever control. Take medication according to label instructions. No dietary restrictions. Do not smoke. (Recommend to utilize OTC Motrin and Tylenol to control inflammation and pain management. Recommend to follow the instructions on the bottle and not to exceed.). Warnings: Further evaluation is necessary. GENERAL WARNINGS: Return or contact your physician immediately if your condition worsens or changes unexpectedly, if not improving as expected, or if other problems arise. Your Current Medications: Your current home medications have been reviewed. CONTINUE TAKING THE FOLLOWING MEDICATIONS: Aspir in 81 Oral. 4 Clinical Report - Physicians/Mid Levels [facility] Emergency Department [address] [place] [address] Phone #: ext- [phone] 02/20/2021 14:07 Patient: DAQUAN AMAYA Sex: F : 1950 Age: 70y Labetalol HCl Oral. Lisinopril Oral. NexIUM Oral. Prescription Medications: prednisone 50 mg tablet Take 1 tablet once a day with meals for 5 days -- start [id number]. Dispense 5 tablet. Refills: 0. Substitution permitted. Pharmacy - [facility] #[id number] [place], [place] [id number]. . cephalexin 500 mg capsule Take 1 capsule three times a day for 7 days -- Start today. Dispense 21 capsule. Refills: 0. Substitution permitted. [facility] #[id number] [place] [address]. . Zyrtec 10 mg tablet Take 1 tablet once a day for 15 days -- Dispense 15 tablet. Refills: 0. Substitution permitted. [facility] #[id number] [place] [address]. . hydroxyzine HCl 25 mg tablet Take 1 tablet twice a day for 5 days -- Anti-Itch. Dispense 10 tablet. Refills: 0. Substitution permitted. [facility] #[id number] [place], [place] [phone]. FaxNumber: . Follow-up: Return to the emergency department as needed. Follow up with your healthcare provider in about two days if not better. Call for an appointment. Understanding of the discharge instructions verbalized by patient.(Electronically signed by Tavon Manuel P.A.-C 02/21/2021 11:22) Name Value Range Interpretation Code Description Data Anisha rce(s) Supporting Document(s) ID Date Data Source [id number] 07/09/2020 12:00:00 AM EST [facility] Name Value Range Interpretation Code Description Data Anisha rce(s) Supporting Document(s) SARS-CoV2 Rapid Antigen [facility] This lab was ordered by [facility] and reported by [facility]. Procedure Social History No Information Vital Signs ID Date Data Source UNK Name Value Range Interpretation Code Description Data Source(s) Systolic blood pressure 197 mm[Hg] 197 mm[Hg] Justin PUENTES (Mala Barrera MD) Diastolic blood pressure 104 mm[Hg] 104 mm[Hg] ALVARADO (Mala Barrera MD) Heart rate 76 /min 76 /min [facility] (Mala Barrera MD) Body height 62 [in_i] 62 [in_i] ALVAR[facility] (Mala Barrera MD) 5'2" Body mass index (BMI) [Ratio] 40.1 kg/m2 40.1 k g/m2 ALVARADO (Mala Barrera MD) Body weight 219.00 [lb_av] 219.00 [lb_av] MEDEN T (Mala Barrera MD) Body temperature 97.7 [degF] 97.7 [degF] ALVARADO (Mala Barrera MD) Oxygen saturation in Arterial blood by Pulse oximetry 97 % 97 % ALVARAD[facility] (Mala Barrera MD)
[2021-06-20] MEDS ORDERED: LABETALOL 100MG TAB PO ONE (12:00)
[2021-06-20] MEDS ORDERED: LISI20TA33 PO (12:01)
[2021-06-20] MEDS ORDERED: LABE300T2 PO (12:01)
[2021-06-20 12:10] VITALS: BP 196/95
[2021-06-20] MEDS ORDERED: APIXABAN 5 MG TAB (ELIQUIS) PO ONE (12:30)
[2021-06-20] MEDS ORDERED: ELIQ5TAB PO (12:31)
[2021-06-20 13:16] VITALS: BP 115/84
--- NOTE | 2021-06-20 19:04 | ECGEPIP ---
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
--- NOTE | 2021-06-20 19:06 | ECGEPIP ---
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
== END 2021-06-20 13:25 | disposition home or self-care (01) ==
LOC: M ED 05:58
DX: I48.91 Unspecified atrial fibrillation (principal); I25.2 Old myocardial infarction; I25.10 Atherosclerotic heart disease of native coronary artery without angina pectoris; I11.9 Hypertensive heart disease without heart failure; Z79.899 Other long term (current) drug therapy; Z90.49 Acquired absence of other specified parts of digestive tract; Z98.890 Other specified postprocedural states
CPT/HCPCS: 71045; 80048; 83735; 84439; 84443; 84484; 85025; 93005; 93041; 94760; 96361; 96374; 96376; 99285; J3475

== ENCOUNTER 2021-07-30 19:37 | Emergency (ER) | payer MEDICARE, OTHER ==
[~2021-07-30] VITALS: Ht 157.5 cm; Wt 98.2 kg
[~2021-07-30 19:37] MED LIST: ELIQ5TAB PO; LABE300T2 PO; LISI20TA33 PO
--- OUTSIDE RECORDS SUMMARY | 2021-07-30 19:46 | CCD | Continuity of Care Document ---
Author Author Leila ORONA MD Organization Unknown Address [address] [place] [address], [place] [address] Phone [phone] Problems Description No Information Available Social History Type Date Description Comments Sex Unknown ETOH Use Consumes Liquor 1 christiano occa sionally ETOH Use Consumes Beer 1-2 occasionally Tobacco Use Start: Unknown End: Unknown Patient is a former smoker up to 1 ppd x8 yrs; quit 1999 Smoking Status Reviewed: 06/26/21 Patient is a former smoker up to 1 ppd x8 yrs; quit 1999 Exercise Type/Frequency Does housework twice a w [place] Exercise Type/Frequency Walks sporadically up/do wn stairs to 3rd floor apartment Exercise Limitations None Allergies and adverse reactions Description No Known Drug Allergies Medications Active Medications SIG Qnty Indications Ordering Provide r Date Loperamide HCL 2mg Tablets 1 by mouth daily as needed Unknown 06/25/2021 Super B Complex Maxi Tablets 1 by mouth daily Unknown 06/25/2021 Zinc 50mg Tablets 1 by mouth daily Unknown 06/25/2021 Potassium Gluconate 550(90K) mg Ta blets 1 by mouth daily Unknown 06/25/2021 Vitamin D3 250mcg (75877 Ut) Capsu les 1-2 by mouth every day Unknown 06/25/2021 Nexium 24HR 20mg Tablets DR 2 by mouth every day Unknown 06/25/2021 Magnesium Oxide 400mg Tablets 1 by mouth once a day Glenn Barrera MD 06/25/2021 Eliquis 5mg Tablets 1 by mouth twice a day Josephine Broussard MD 06/25/20 Lisinopril 20mg Tablets 1 by mouth every day Glenn Barrera MD 06/25/2021 Labetalol HCL 300mg Tablets 1 by mouth once daily Glenn Barrera MD 06/25/2021 Aspirin Ec Low Dose 81mg Tablets D R 1 by mouth every day Unknown 06/25/2021 Aspirin Adult Low Dose 81mg Tablet s DR 1-4 by mouth as needed for headache Unknown 06/25/2021 Immunizations Description No Information Available Vital Signs Date Vital Result Comment 06/26/2021 10:56am Weight 220.00 lb Home Weight 218lb Height 63 inches 5'3" BMI (Body Mass Index) 39.0 kg/m2 Heart Rate 60 /min BP Systolic Sitting 167 mmHg CBP large cuff, Ra BP Diastolic Sitting 96 mmHg CBP large cuff, Ra Results Test Acquired Date Facility Test Result H/L Range Note Basic Metabolic Panel 06/20/2021 [facility] - not interfac ed (315)- - Glucose 147 High 70-100 Blood Urea Nitrogen 19 High 7-18 Creatinine 0.89 0.55-1.30 Sodium 141 136-145 Potassium 3.5 3.5-5.1 Chloride 106 98-107 Carbon Dioxide 30 21-32 Calcium 9.4 8.2-9.6 GFR (Calculated) >60.0 >32 Laboratory test finding 06/20/2021 [facility] - not interf aced (315)- - Magnesium Level 1.4 Low 1.8-2.4 Thyroid Stimulating Hormone 0.687 Free T4 1.12 CBC without Differential 06/20/2021 [facility] - not inter faced (315)- - White Blood Count 6.1 4.0-10.0 Red Blood Count 5.13 4.00-5.40 Platelets 203 150-450 Hemoglobin 15.5 Hematocrit 44.3 Procedures Date Code Description Status 06/26/2021 99400 Office/Outpatient New Moderate M DM 45-59 Minutes Completed 06/26/2021 03399 Arterial Pressure Wa veform Analysis For Assessment Of Central Art Completed 06/26/2021 24368 ECG 12-Lead Completed Medical Devices Description No Information Available Encounters Type Date Location Provider Dx Diagnosis Office Visit 06/26/2021 11:00a Main Office David Orona MD I48.0 Paroxysmal atrial fibrillation I10 Essential (primary) hyperten last I44.0 Atrioventricular block, firs t degree 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.2 Old myocardial infarction Z95.5 Presence of coronary angiopl asty implant and graft R94.31 Abnormal electrocardiogram [ ECG] [EKG] E83.42 Hypomagnesemia Z71.3 Dietary counseling and surve illance Assessments Date Code Description Provider 06/26/2021 I48.0 Paroxysmal atrial fibrillation D hayden Orona MD 06/26/2021 I10 hypertension (arteri al) (benign) (essential) (malignant) (primary) (systemic) David Orona MD 06/26/2021 I44.0 Atrioventricular block, first de gree David Orona MD 06/26/2021 I25.10 Atherosclerotic hear t disease of [place] coronary artery without angina pectoris David Orona MD 06/26/2021 I25.2 Old myocardial infarction David Orona MD 06/26/2021 Z95.5 Presence of coronary angioplasty implant and graft David Orona MD 06/26/2021 R94.31 Abnormal electrocardiogram [ECG] [EKG] David Orona MD 06/26/2021 E83.42 Hypomagnesemia David Orona MD 06/26/2021 Z71.3 Dietary counseling and surveilla nce David Orona MD Plan of Treatment Future Appointment(s):* 12/25/2021 10:45 am - [facility] at Main Office * 07/15/2021 1:00 pm - Cardiac PET at Main Office * 09/18/2021 10:00 am - ECHO at Main Office 06/26/2021 - David Orona MD* I48.0 Paroxysmal atrial fibrillation* New Xrays:* US Echocardiogram Transthoracic W Doppler And Color Flow, Scheduled: 09/18/21 * Recommendations:* Echocardiogram Doppler was ordered for further evaluation. Avoid alcohol: The link between alcohol and atrial fibrillation was explained to the patient. Patient was strongly encouraged to avoid all alcohol. Rate control approach for now. Continue Eliquis and labetalol at the current dosages. * I10 hypertension (arterial) (benign) (essential) (malignant) (primary) (systemic)* Recommendations:* Continue lisinopril and labetalol at the current dosages. Low-fat, whole-food, plant-based, low sodium nutrition with avoidance of added oils and fats and avoidance of refined carbohydrates was encouraged. Walking or equivalent aerobic activity for 40-60 minutes every day. * I44.0 Atrioventricular block, first degree* Recommendations:* Continue with labetalol. * I25.10 Atherosclerotic heart disease of [place] coronary artery without angina pectoris* New Xrays:* PET Myocardial Perfusion Multi Study AT [facility], Scheduled: 07/15/21 * Recommendations:* Regadenoson stress rubidium-82 PET myocardial perfusion imaging was ordered to evaluate the patient's coronary prognosis. Continue lisinopril, labetalol, aspirin at the current dosages. * I25.2 Old myocardial infarction * Z95.5 Presence of coronary angioplasty implant and graft * R94.31 Abnormal electrocardiogram [ECG] [EKG]* Recommendations:* Echocardiogram-Doppler * E83.42 Hypomagnesemia* Recommendations:* Continue magnesium oxide at the current dosage. * Z71.3 Dietary counseling and surveillance * All * Follow up:* Follow-up in 6 months with physician assistant technician. Functional Status Functional Condition Comment Date Status Independent with all ADL's Activ e Mental Status Description No Information Available Referrals Description No Information Available
--- OUTSIDE RECORDS SUMMARY | 2021-07-30 19:46 | CCD | Continuity of Care Document ---
Author Author Leila Capps Organization Unknown Address [address] [place] [address], [place] [address] Phone [phone] Problems Description No Information Available Social History [...] Exercise Type/Frequency Does housework twice a w [place] Exercise Type/Frequency Walks sporadically up/do wn stairs [...] mouth daily Unknown 06/25/2021 Vitamin D3 250mcg (28681 Ut) Capsu les 1-2 by mouth every [...] H/L Range Note Basic Metabolic Panel 06/20/2021 [facility] - not interfac ed (315)- - Glucose 147 High 70-100 Blood Urea Nitrogen 19 High 7-18 Creatinine 0.89 0.55-1.30 Sodium 141 136-145 Potassium 3.5 3.5-5.1 Chloride 106 98-107 Carbon Dioxide 30 21-32 Calcium 9.4 8.2-9.6 GFR (Calculated) >60.0 >32 Laboratory test finding 06/20/2021 [facility] - not interf aced (315)- - Magnesium Level 1.4 Low 1.8-2.4 Thyroid Stimulating Hormone 0.687 Free T4 1.12 CBC without Differential 06/20/2021 [facility] - not inter faced (315)- - White Blood Count 6.1 4.0-10.0 Red Blood Count 5.13 4.00-5.40 Platelets 203 150-450 Hemoglobin 15.5 Hematocrit 44.3 Procedures Date Code Description Status 06/26/2021 83387 Office/Outpatient New Moderate M DM 45-59 Minutes Completed 06/26/2021 92270 Arterial Pressure Wa veform Analysis For Assessment Of Central Art Completed 06/26/2021 53492 ECG 12-Lead Completed Medical Devices Description No [...] 06/26/2021 I25.10 Atherosclerotic hear t disease of [place] coronary artery without angina pectoris [place] [...] - [facility] at Main [facility] * 09/18/2021 10:00 am [...] labetalol. * I25.10 Atherosclerotic heart disease of [place] coronary artery without angina pectoris* New Xrays:* [...] Follow-up in 6 months with physician assistant professor of psychology. Functional Status Functional Condition Comment Date Status Independent with all ADL's Activ e Mental Status Description No Information Available Referrals Description No Information Available
--- OUTSIDE RECORDS SUMMARY | 2021-07-30 19:47 | CCD ---
Author Author [facility] Organization [facility] Address Unknown Phone Unavailable Care Team Providers Care Coffee Weigher Name Role Phone NO, PCP Unavailable Unavailable [...] MORRIS NP Unavailable Unavailable LAROCK, Amy MORRIS LOOP SEWER Unavailable Unavailable LAROCK, Amy MORRIS LOOP SEWER Unavailable Unavailable LAROCK, Amy MORRIS LOOP SEWER Unavailable Unavailable LAROCK, Amy MORRIS LOOP SEWER Unavailable Unavailable LAROCK, Amy MORRIS LOOP SEWER Unavailable Unavailable LAROCK, Amy MORRIS LOOP SEWER Unavailable Unavailable LAROCK, Amy MORRIS LOOP SEWER Unavailable Unavailable LAROCK, Amy MORRIS LOOP SEWER Unavailable Unavailable LAROCK, Amy MORRIS NP Unavailable [...] Unavailable SABIHA, MAQBOOL MALA MD Unavailable Unavailable ANTECOL, Sam DUGAN MD Unavailable Unavailable ANTECOL, Sam DUGAN MD Unavailable Unavailable ANTECOL, Sam DUGAN MD Unavailable Unavailable ANTECOL, Sam DUGAN MD Unavailable Unavailable ANTECOL, Sam DUGAN MD Unavailable Unavailable ANTECOL, Sam DUGAN MD Unavailable Unavailable ANTECOL, Sam DUGAN MD Unavailable Unavailable ANTECOL, Sam DUGAN MD Unavailable Unavailable ANTECOL, Sam DUGAN MD Unavailable Unavailable ANTECOL, Sam DUGAN MD Unavailable Unavailable ANTECOL, Sam DUGAN MD Unavailable Unavailable ANTECOL, Sam DUGAN MD Unavailable Unavailable ANTECOL, Sam DUGAN MD Unavailable Unavailable ANTECOL, Sam DUGAN MD Unavailable Unavailable ANTECOL, Sam DUGAN MD Unavailable Unavailable ANTECOL, Sam DUGAN MD Unavailable Unavailable ANTECOL, Sam DUGAN MD Unavailable Unavailable ANTECOL, Sam DUGAN MD Unavailable Unavailable ANTECOL, Sam DUGAN MD Unavailable Unavailable ANTECOL, Sam DUGAN MD Unavailable Unavailable ANTECOL, Sam DUGAN MD Unavailable Unavailable ANTECOL, Sam DUGAN MD Unavailable Unavailable ANTECOL, Sam DUGAN MD Unavailable Unavailable ANTECOL, Sam DUGAN MD Unavailable Unavailable ANTECOL, Sam DUGAN MD Unavailable Unavailable ANTECOL, Sam DUGAN MD Unavailable Unavailable ANTECOL, Sam DUGAN MD Unavailable Unavailable ANTECOL, Sam DUGAN MD Unavailable Unavailable ANTECOL, Sam DUGAN MD Unavailable Unavailable ANTECOL, Sam DUGAN MD Unavailable Unavailable ANTECOL, Sam DUGAN MD Unavailable Unavailable ANTECOL, Sam DUGAN MD Unavailable Unavailable ANTECOL, Sam DUGAN MD Unavailable Unavailable ANTECOL, Sam DUGAN MD Unavailable Unavailable ANTECOL, Sam DUGAN MD Unavailable Unavailable ANTECOL, Sam DUGAN MD Unavailable Unavailable ANTECOL, Sam DUGAN MD Unavailable Unavailable ANTECOL, Sam DUGAN MD Unavailable Unavailable ANTECOL, Sam DUGAN MD Unavailable Unavailable ANTECOL, Sam DUGAN MD Unavailable Unavailable ANTECOL, Sam DUGAN MD Unavailable Unavailable ANTECOL, Sam DUGAN MD Unavailable Unavailable ANTECOL, Sam DUGAN MD Unavailable Unavailable ANTECOL, Sam DUGAN MD Unavailable Unavailable ANTECOL, Sam DUGAN MD Unavailable Unavailable ANTECOL, Sam DUGAN MD Unavailable Unavailable ANTECOL, Sam DUGAN MD Unavailable Unavailable ANTECOL, Sam DUGAN MD Unavailable Unavailable ANTECOL, Sam DUGAN MD Unavailable Unavailable ANTECOL, Sam DUGAN MD Unavailable Unavailable ANTECOL, Sam DUGAN MD Unavailable Unavailable ANTECOL, Sam DUGAN MD Unavailable Unavailable ANTECOL, Sam DUGAN MD Unavailable Unavailable ANTECOL, Sam DUGAN MD Unavailable Unavailable ANTECOL, Sam DUGAN MD Unavailable Unavailable NONE Unavailable Unavailable Vadim Suazo Unavailable Unavailable CAITLIN BARRERA MD Unavailable Unavailable [...] is protected by Article 27-F of the [facility] Public Health law. If you continue you may have access to information: Regarding HIV / AIDS; Provided by facilities licensed or operated by the [facility] Office of Mental Health; or Provided by the [facility] Office for People With Developmental Disabilities. If such information is present, then the following [facility] mandated warning applies: This information has been [...] law may result in a fine or half-way sentence or both. A general authorization for the release of medical or other information is NOT sufficient authorization for further disc losure. Allergies and Adverse Reactions Type Description Substance Reaction Status Data Source(s ) No Known Drug Allergies No Known Drug Allergies [facility] Hospital Encounters Encounter Providers Location Date Indications Data Source(s ) Outpatient Attender: Vadim HARVEY 03/2021 05:35:46 PM EST - 07/30/2021 06:46:00 PM EST Deborah ([facility]) Outpatient Attender: RITCHIE CROOKS MD Main Office 06/26/2021 11:00:00 AM CHRISTIANNE CHILDERS ([facility]) Outpatient 05/06/2021 02:30:31 PM EDT - 021 03:01:28 PM EDT [facility] ([facility]) Outpatient Attender: MALA BARRERA MDConsultant: PCP HA 03/13/2021 02:21:00 PM EDT - 03/13/2021 03:21:[facility]: [facility]A BARRER[facility] MD Medical [facility] 03/13 01:45:00 PM EDT [facility] (Mala Barrera MD) Emergency Attender: LAUREL SANDHU MDConsultant: PCP NOConsultant: NONE 02/20/2021 02:07:00 PM EDT - 02/20/2021 04:54:00 PM EDT [facility] Patient discharged. Outpatient Attender: ARTURO PARRA NP 12/21 08:14:13 AM EDT - 01/01/2021 08:22:[address] [facility] ([facility] ) Immunizations Vaccine Date Status Description Data Source(s) COVID-19 VACCINE Moderna 11/01/2020 12:00:00 AM EST completed [facility] Vaccine Series Complete: YESThis Data wa s Submitted to [facility] Via [employer]. COVID-19 VACCINE Moderna 10/04/2020 12:00:00 AM EST completed [facility] Vaccine Series Complete: NOThis Data was Submitted to [facility] Via [employer]. Medications Medication Brand Name Start Date Product Form Dose Route Admi nistrative Instructions Pharmacy Instructions Status Indications Reaction Description Data Source(s) Magnesium Oxide 400 MG Oral Tablet Magnesium Oxide 06/25/2021 12:00 :00 AM EDT ORAL active [facility] ([facility]) apixaban 5 MG Oral Tablet [Eliquis] Eliquis 06/25/2021 12:00:00 AM E DT ORAL active [facility] ([facility]) Cholecalciferol 66563 UNT Oral Capsule Vitamin D3 06/25/2021 12:0 0:00 AM EDT ORAL active [facility] ([facility]) Nexium 24HR Nexium 24HR 06/25/2021 12:00:00 AM EDT ORAL active [facility] ([facility]) Zinc 06/25/2021 12:00:00 AM EDT ORAL active [facility] ([facility]) Potassium gluconate 2.35 MEQ Oral Tablet Potassium Gluconate 06/25/2021 12:00:00 AM EDT ORAL active [facility] ([facility]) Super B Complex Maxi 06/25/2021 12:00:00 AM EDT ORAL active [facility] ([facility]) Aspirin 81 MG Delayed Release Oral Tablet Aspirin Ec Low Dos e 06/25/2021 12:00:00 AM EDT ORAL active M [facility] ([facility]) Aspirin 81 MG Delayed Release Oral Tablet Aspirin Adult Low Dose 06/25/2021 12:00:00 AM EDT ORAL active M [facility] ([facility]) Loperamide Hydrochloride 2 MG Oral Tablet Loperamide HCL 06/25/2021 12:00:00 AM EDT ORAL active [facility] ([facility]) Lisinopril 20 MG Oral Tablet Lisinopril 06/25/2021 12:00:00 AM EDT ORAL active [facility] ([facility]) Labetalol hydrochloride 300 MG Oral Tablet Labetalol HCL 06/25/2021 12:00:00 AM EDT ORAL active [facility] ([facility]) Magnesium Oxide 400 MG Oral Tablet Magnesium Oxide 03/19/2021 12:00 :00 AM EDT ORAL active [facility] (Mala Barrera MD) Aspirin 81 MG Delayed Release Oral Tablet Aspirin 03/13/2021 1 2:00:00 AM EDT ORAL active [facility] (Mala Barrera MD) Insurance Providers Payer name Policy type / Coverage type Policy ID Covered alliance party ID Covered alliance party's relationship to lamar Policy Lamar Plan Information / [id number] Self [id number] [place] [employer] Medicare Part B [id number] Self [id number] / [id number] Self [id number] [place] Medicare [place] B [id number] Self [id number] / [id number] Self [id number] MEDICARE PART A -O/P [id number] 18 [id number] FOR LIFE -I/P [id number] 18 [id number] MEDICARE PART A -I/P [id number] 18 [id number] FOR LIFE -I/P [id number] 18 [id number] MEDICARE [id number] SP [id number] FOR LIFE -O/P [id number] 18 [id number] FOR LIFE [id number] MEDICARE [id number] MEDICARE PART A -O/P [id number] 18 [id number] FOR LIFE -O/P [id number] 18 [id number] Problems, Conditions, and Diagnoses Code Display Name Description Problem Type Effective Dates Data Source(s) M109 Gout, unspecified Gout, unspecified Diagnosis 03/13/2021 02:21:00 PM EDT [facility] E8342 Hypomagnesemia Hypomagnesemia Diagnosis 03/13/2021 02:21: 00 PM EDT [facility] N390 Urinary tract infection, site not specif ied Urinary tract infection, site not specified Diagnosis 03/13/2021 02:21:00 PM [facility] E039 Hypothyroidism, unspecified Hypothyroidism, unspecifie d Diagnosis 03/13/2021 02:21:00 PM [facility] E785 Hyperlipidemia, unspecified Hyperlipidemia, unspecifie d Diagnosis 03[facility]13[facility] Anemia, unspecified Anemia, unspecified Diagnosis 0 03/13/2021 02:21:00 PM EDT [facility] E119 Type 2 diabetes mellitus without complic ations Type 2 diabetes mellitus without complications Diagnosis 03/13/2021 02:21:00 PM EDT [facility] Z8542 Personal history of malignant neoplasm o f other parts of uterus Personal history of malignant neoplasm of other parts of uterus Diagnosis 02/20/2021 02:07:00 PM EDT [facility] 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 helper (cu rrent) use of aspirin Diagnosis 02/20/2021 02:07:00 PM EDT [facility] I509 Heart failure, unspecified Heart failure, unspecified Diagnosis 02/20/2021 02:07:00 PM EDT [facility] I110 Hypertensive heart disease with heart fa ilure Hypertensive heart disease with heart failure Diagnosis 02/20/2021 02:07:00 PM EDT [facility] G88552 Cellulitis of chest wall Cellulitis of chest wall Diag nosis 02/20/2021 02:07:00 PM EDT [facility] C06517 Cellulitis of face Cellulitis of face Diagnosis 08/2020 02:07:00 PM EDT [facility] L237 Allergic contact dermatitis due to plant s, except food Allergic contact dermatitis due to plants, except food Diagnosis 02/20/2021 02:07:00 PM EDT [facility] R21 Rash and other nonspecific skin eruption Rash and other nonspecific skin eruption Diagnosis 02/20/2021 02:07:00 PM EDT [facility] Surgeries/Procedures Procedure Description Date Indications Data Source(s) ECG ROUTINE ECG W/LEAST 12 LDS W/I&R 06/26/2021 12:00: 00 AM EDT [facility] ([facility]) Arterial Pressure Waveform Analysis For Assessment Of Centra l Art 06/26/2021 12:00:00 AM EDT [facility] ([facility]) OFFICE OUTPATIENT NEW 45 MINUTES 06/26/2021 12:00:00 A M EDT [facility] ([facility]) OFFICE OUTPATIENT NEW 45 MINUTES 03/13/2021 12:00:00 A M EDT [facility] (Mala Barrera MD) Results ID Date Data Source [id number] 06/20/2021 04:16:00 PM EDT [facility] ([facility]) Name Value Range Interpretation Code Description Data Anisha rce(s) Supporting Document(s) White Blood Count 6.1 4.0-10.0 [facility] ([facility]) Red Blood Count 5.13 4.00-5.40 [facility] ([facility]) Platelets 203 150-450 [facility]) Hemoglobin 15.5 [facility] ([facility]) Hematocrit 44.3 [facility] ([facility]) ID Date Data Source [id number] 06/20/2021 04:16:00 PM EDT [facility] ([facility]) Name Value Range Interpretation Code Description Data Anisha rce(s) Supporting Document(s) Magnesium Level 1.4 1.8-2.4 [facility] ([facility]) Thyroid Stimulating Hormone 0.687 ME [facility] ([facility]) Free T4 1.12 [facility] ID Date Data Source [id number] 06/20/2021 04:16:00 PM EDT [facility] ([facility]) Name Value Range Interpretation Code Description Data Anisha rce(s) Supporting Document(s) Glucose 147 70-100 [facility] Blood Urea Nitrogen 19 7-18 [facility] ([facility]) Creatinine 0.89 0.55-1.30 [facility] ([facility]) Sodium 141 136-145 [facility] Potassium 3.5 3.5-5.1 [facility] Chloride 106 98-107 [facility] Carbon Dioxide 30 21-32 [facility] ([facility]) Glomerular filtration rate/1.73 sq M.pre dicted [Volume Rate/Area] in Serum or Plasma by Creatinine-based formula (MDRD) Laboratory test result [facility] ([facility]) Calcium 9.4 8.2-9.6 [facility] ID Date Data Source [id number] 05/06/2021 03:00:00 PM EDT [facility] Name Value Range Interpretation Code Description Data Anisha rce(s) Supporting Document(s) SARS-CoV-2 RNA Resp Ql YUAN+probe NOT DETECTED [facility] This lab was ordered by TALON carmona and reported by TALON Hawkins. ID Date Data Source [id number] 03/13/2021 02:26:00 PM EDT [facility] (Mala Barrera MD) Name Value Range Interpretation Code Description Data Anisha rce(s) Supporting Document(s) Laboratory test finding (navigational concept) 81.9 pg/mL 0.0-191.8 [facility] (Mala Barrera MD) Laboratory test finding (navigational concept) Laboratory test result [facility] (Mala Barrera MD) Test(s) [id number]-Zegehygegnpcort, Pl; 0700 23-Metanephrine, Pl was developed and its performance characteristics determined by [facility]. It has not been cleared or approved by the Food and Drug Administration. Laboratory test finding (navigational concept) 33.0 pg/mL 0.0-88.0 [facility] (Mala Barrera MD) ID Date Data Source [id number] 03/13/2021 02:26:00 PM EDT [facility] (Mala Barrera MD) Name Value Range Interpretation Code Description Data Anisha rce(s) Supporting Document(s) Thyrotropin [Units/volume] in Serum or Plasma by Detec tion limit <= 0.005 mIU/L 0.80 uIU/mL 0.47-5.01 [facility] (Mala Barrera MD) ID Date Data Source [id number] 03/13/2021 02:26:00 PM EDT [facility] (Mala Barrera [...] AVERAGE 11.04 6.14 ID Date Data Source [id number] 03/13/2021 02:26:00 PM EDT [facility] (Mala Barrera [...] (navigational concept) 6.8 g/dL 6.3-8.2 [facility] (Mala Barrrea MD) Laboratory test finding (navigational concept) 23 8-27 [facility] (Mala Barrera MD) Laboratory test finding (navigational concept) 2.3 GM/DL 2 .4-3.2 Below low normal [facility] (Mala aBrrera MD) Laboratory test finding (navigational concept) 2.0 [...] (Mala Barrera MD) ID Date Data Source [id number] 03/13/2021 02:26:00 PM EDT [facility] (Mala Barrera [...] (Mala Barrera MD) ID Date Data Source [id number] 03/13/2021 02:26:00 PM EDT [facility] (Mala Barrera [...] (Mala Barrera MD) ID Date Data Source [id number] 03/13/2021 02:26:00 PM EDT [facility] (Mala Barrera [...] (navigational concept) 44.2 % 37.0-47.0 [facility] (Mala aBrrera MD) Laboratory test finding (navigational concept) 35.5 [...] (Mala Barrera MD) ID Date Data Source [id number] 03/21/2021 06:32:00 AM EDT [facility] Name Value Range Interpretation Code Description Data Anisha rce(s) Supporting Document(s) METANEPHRINE FRACTIONATED [facility] Test(s) [id number]-Ckspvjpwctqwrtj, Pl; 0700 23-Metanephrine, Plwas developed and its performance characteristics determinedby [facility]. It has not been cleared or approved by the Foodand Drug Administration. Normetanephrine [Mass/volume] in Serum or Plasma 81.9 pg/mL 0.0-191.8 [facility] Metanephrine Free [Mass/volume] in Serum or Plasma 33.0 pg/mL 0.0-88. 0 [facility] ID Date Data Source [id number] 03/13/2021 07:18:00 PM EDT [facility] Value Range Interpretation Code Description Data Anisha rce(s) Supporting Document(s) Magnesium [Mass/volume] in Serum or Plasma 1.4 MG/DL 1.7 - 2.2 L [facility] ID Date Data Source [id number] 03/13/2021 07:25:00 PM EDT [facility] Value Range Interpretation Code Description Data Anisha rce(s) Supporting Document(s) Thyrotropin [Units/volume] in Serum or Plasma by Detec tion limit <= 0.05 mIU/L 0.80 uIU/mL 0.47 - 5.01 [facility] ID Date Data Source [id number] 03/13/2021 07:18:00 PM EDT [facility] Value Range Interpretation Code Description Data Anisha rce(s) Supporting Document(s) [facility] LIP[facility] PAN[facility] Cholesterol [Mass/volume] in Serum or Plasma 230 MG/DL 131 - 200 H [facility] Deprecated Triglyceride [Mass/volume] in Serum or Plasma 103 MG/DL 3 5 - 160 [facility] HDL 85 MG/DL 29 - 86 [facility] Cholesterol in LDL [Mass/volume] in Serum or Plasma by Direc t assay 141 mg/dL 65 - 175 [facility] Cholesterol.total/Cholesterol in HDL [Mass Ratio] in Serum o r Plasma 2.7 3.2 - 4.4 L [facility] LDL/HDL 1.66 1.47 - 3.22 [facility] CVE RISK CHOL/HDL LDL/HDLMEN: 1/2 AVERAGE 3.43 1.00 AVERAGE 4.97 3.55 2X AVERAGE 9.55 6.25 3X AVERAGE 23.99 7.99WOMEN: 1/2 AVERAGE 3.27 1.47 AVERAGE 4.44 3.22 2X AVERAGE 7.05 5.03 3X AVERAGE 11.04 6.14 ID Date Data Source [id number] 03/13/2021 07:18:00 PM EDT [facility] Name Value Range Interpretation Code Description Data Anisha rce(s) Supporting Document(s) COMPREHENSIVE METABOLIC PANEL [facility] COMPREHENSIVE METABOLIC PANEL Sodium [Moles/volume] in Serum or Plasma 140 mEq/L 134 - 153 [facility] Potassium [Moles/volume] in Serum or Plasma 3.9 mEq/L 3.6 - 5.0 [facility] Chloride [Moles/volume] in Serum or Plasma 103 mEq/L 98 - 107 [facility] Carbon dioxide, total [Moles/volume] in Serum or Plasma 24 MEQ/L 22 - 30 [facility] Glucose [Mass/volume] in Serum or Plasma 94 MG/DL 70 - 99 [facility] BUN 16 MG/DL 7 - 21 [facility] Creatinine [Mass/volume] in Serum or Plasma 0.7 MG/DL 0.7 - 1.5 [facility] BUN/CREAT 23 8 - 27 [facility] Protein [Mass/volume] in Serum or Plasma 6.8 G/DL 6.3 - 8.2 [facility] Albumin [Mass/volume] in Serum or Plasma 4.5 G/DL 3.9 - 5.0 [facility] Globulin [Mass/volume] in Serum by calculation 2.3 GM/DL 2.4 - 3.2 L [facility] A/G RATIO 2.0 0.8 - 2.0 [facility] Calcium [Mass/volume] in Serum or Plasma 9.0 MG/DL 8.4 - 10.2 [facility] Bilirubin.total [Mass/volume] in Serum or Plasma 0.7 MG/DL 0.2 - 1.3 [facility] Alkaline phosphatase [Enzymatic activity/volume] in Serum or Plasma 78 U/L 38 - 126 [facility] Aspartate aminotransferase [Enzymatic activity/volume] in Serum or Plasma 21 U/L 5 - 40 [facility] Alanine aminotransferase [Enzymatic activity/volume] in Seru m or Plasma 16 U/L 7 - 56 [facility] Anion gap 3 in Serum or Plasma 13.0 mmol/L 8.0 - 16.0 [facility] 70 [facility] >60 mL/min [facility] AFR AMER GFR >60 [facility] Male GFR In terprentation [...] >32 mL/min Normal ID Date Data Source [id number] 03/13/2021 07:15:00 PM EDT [facility] Name Value Range Interpretation Code Description Data Anisha rce(s) Supporting Document(s) Urate [Mass/volume] in Serum or Plasma 4.7 MG/DL 2.5 - 8.5 [facility] ID Date Data Source [id number] 03/13/2021 03:22:00 PM EDT [facility] Name Value Range Interpretation Code Description Data Anisha rce(s) Supporting Document(s) Hemoglobin A1c/Hemoglobin.total in Blood 5.5 % 4.4 - 6.1 [facility] {A1]{HB] ID Date Data Source [id number] 03/13/2021 02:47:00 PM [facility] Name Value Range Interpretation Code Description Data Anisha rce(s) Supporting Document(s) [facility] URINALYSIS SOURCE R [facility] COLOR yellow NORMAL: Yellow [facility] CLARITY clear NORMAL: Clear [facility] Specific gravity of Urine by Test strip 1.005 1.001 - 1.030 [facility] pH 5 5 - 9 [facility] al Glucose [Mass/volume] in Urine by Test strip [facility] Bil[facility] [Presence] in Urine by Test strip NEG NORMAL: Negative [facility] Ketones [Presence] in Urine by Test strip NEG NORMAL: Negative [facility] Protein [Mass/volume] in Urine by Test strip NEG NORMAL: Negat [facility] Nitrite [Presence] in Urine by Test strip NEG NORMAL: Negative [facility] BLOOD NEG NORMAL: Negative [facility] LEUK EST NEG NORMAL: Negative [facility] Urobilinogen [Mass/volume] in Urine by Test strip NOR less jerzy n 1.0 mg/dL [facility] MICROSCOPIC Not Indicate [facility] ospital ID Date Data Source [id number] 03/13/2021 02:42:00 PM EDT [facility] Name Value Range Interpretation Code Description Data Anisha rce(s) Supporting Document(s) CBC W/AUTOMATED DIFF [facility] COMPLETE BLOOD COUNT Leukocytes [#/volume] in Blood by Automated count 5.2 10^3/uL 4.2 - 1 1.0 [facility] Erythrocytes [#/volume] in Blood by Automated count 5.17 10^6/uL 4. 20 - 5.40 [facility] Hemoglobin [Mass/volume] in Blood 15.7 g/dL 12.0 - 16.0 [facility] Hematocrit [Volume Fraction] of Blood by Automated count 44.2 % 3 7.0 - 47.0 [facility] Erythrocyte mean corpuscular volume [Entitic volume] by Auto mated count 85.5 fL 81.0 - 101 [facility] Erythrocyte mean corpuscular hemoglobin [Entitic mass] by Automated count 30.4 pg 27.0 - 34.0 [facility] Erythrocyte mean corpuscular hemoglobin concentration [Mass/volume] by Automated count 35.5 g/dL 31.0 - 36.0 [facility] Erythrocyte distribution width [Ratio] by Automated count 11.9 % 11.5 - 14.5 [facility] Platelets [#/volume] in Blood by Automated count 203 10^3/uL 150 - 45 0 [facility] Platelet mean volume [Entitic volume] in Blood by Automated count 10.3 fL 7.4 - 10.4 [facility] Neutrophils/100 leukocytes in Blood by Automated count 52.6 % 37. 0 - 80.0 [facility] Lymphocytes/100 leukocytes in Blood by Manual count 37.3 % 25.0 - 40.0 [facility] Monocytes/100 leukocytes in Blood by Automated count 9.1 % 3.0 - 8.0 H [facility] Eosinophils/100 leukocytes in Blood by Automated count 0.8 % 0.0 - 7.0 [facility] Basophils/100 leukocytes in Blood by Automated count 0.2 % 0.0 - 2.5 [facility] %IG 0.0 % 0.0 - 0.0 [facility] %NRBC 0.0 % 0.0 - 0.0 [facility] al Neutrophils [#/volume] in Blood by Automated count 2.72 10^3/uL 2.00 - 6.90 [facility] Lymphocytes [#/volume] in Blood by Automated count 1.93 10^3/uL 0.60 - 3.40 [facility] Monocytes [#/volume] in Blood by Automated count 0.47 10^3/uL 0.00 - 0.90 [facility] Eosinophils [#/volume] in Blood by Automated count 0.04 10^3/uL 0.00 - 0.70 [facility] Basophils [#/volume] in Blood by Automated count 0.01 10^3/uL 0.00 - 0.20 [facility] #IG 0.00 10^3/uL 0.00 - 0.10 [facility] #NRBC 0.00 10^3/uL 0.00 - 0.00 [facility] MANUAL DIFF NOT INDICATED [facility] RBC MORPH NOT INDICATED [facility] spital ID Date Data Source [id number] 02/20/2021 02:07:00 PM EDT [facility] 1 OrderSheet [facility] Emergency Department [address] [place] [address] Phone #: ext- [phone] 02/20/2021 14:07 Patient: DAQUAN AMAYA Sex: F : 1950 Age: 70yWEIGHT:97.5 kg (S)ALLERGIES: No Known Drug AllergyCHIEF COMPLAINT: skin rashDIAGNOSIS: Cellulitis of skin, Contact dermatitis due to poison ivyLAB ORDERSOrder Description Priority Entered Acknowledged InitialedDIAGNOSTIC STUDY ORDERSOrder Description Priority Entered Acknowledged InitialedMEDICATION/IV/DRIP/FLUID ORDERSOrder Description Priority Entered Acknowledged InitialedTylenol 1 g PO X1 15:41 02/20/2021 15:53 Sorbero,dose: 1000 mg Tavon Fowler R.N.(NOW x1) P.A.-C;Dexamethasone IM 15:41 02/20/2021 15:53 Sorbero,8 mg Tavon Fowler R.N. P.A.-C;GENERAL ORDERSOrder Description Priority Entered Acknowledged In itialed[Electronically signed by Malcolm Monique R.N. (18:49 02/20/2021)][Electronically signed by Tavon Manuel P.A.-C (11:22 02/21/2021)][Electronically locked by Malcolm Monique R.N. (18:49 02/20/2021)] Name Value Range Interpretation Code Description Data Anisha rce(s) Supporting Document(s) ID Date Data Source [id number] 02/20/2021 02:07:00 PM EDT [facility] 1 Medication Reconciliation Report [facility] Emergency Department [address] [place] [address] Phone #: ext- [phone] 02/20/2021 14:07 Patient: [...] Department:Tylenol [PO] PO 1000 mg, administered: 15:53 02/20/2021examethasone [IM] IM 8 mg, administered: 15:53 02/20/2021The following Medications were prescribed to the patient:prednisone 50 mg tablet Take 1 tablet once a day with meals for 5 days -- start 5Zuaf23. Dispense 5tablet. Refills: 0. Substitution permitted.[facility][id number] [address] [place], [place] [phone]. .cephalexin 500 mg capsule Take 1 capsule three times a day for 7 days -- Start today. Dispense 21capsule. Refills: 0. Substitution permitted.[facility] #[id number] - [address] [place], [place] [phone]. . 2 Medication Reconciliation Report [facility] Emergency Department [address] [place] [address] Phone #: ext- [phone] 02/20/2021 14:07 Patient: DAQUAN AMAYA Sex: F : 1950 Age: 70yZyrtec 10 mg tablet Take 1 tablet once a day for 15 days -- Dispense 15 tablet. Refills: 0. Substitutionpermitted.[facility][id number] [address] [place], [place] [phone]. .hydroxyzine HCl 25 mg tablet Take 1 tablet twice a day for 5 days -- Anti-Itch. Dispense 10 tablet.Refills: 0. Substitution permitted.[facility] #[id number] - [address] [place], [place] [phone]. . -- Tavon Manuel P.A.-C Name Value Range Interpretation Code Description Data [facility](s) Supporting Document(s) ID Date Data Source [id number] 02/20/2021 02:07:00 PM EDT [place] [address] Medication Administration Record [facility] Emergency Department [address] [place] [address] Phone #: ext- [phone] 02/20/2021 14:07 Patient: DAQUAN AMAYA Sex: F : 1950 Age: 70yWeight: 97.5 kgHeight/Length: 62 inBMI: 39.4ALLERGIES: No Known Drug Allergy Date/Time Medication Administered Medication OrderedGiven TYLENOL [PO] (APAP) Tylenol 1 g PO X1 dose: 1000 mg15:53 02/20/2021 Dose: 1000 mg Capsules PO (NOW x1)Malcolm Monique R.N.Given DEXAMETHASONE [IM] Dexamethasone IM 8 mg15:53 02/20/2021 Dose: 8 mg IMSMalcolm carlson R.NLisa Name Value Range Interpretation Code Description Data [facility](s) Supporting Document(s) ID Date Data Source [id number] 02/20/2021 02:07:00 PM EDT [facility] 1 General Instructions [facility] Emergency Department [address] [place] [address] Phone #: ext- [phone] 02/20/2021 14:07 Patient: [...] with meals for 5 days -- start 8Vonj79. Dispense 5tablet. Refills: 0. Substitution permitted.[facility] #[id number] [id number] FaxNumber: [phone].cephalexin 500 mg capsule Take 1 capsule three times a day for 7 days -- Start today. Dispense 21capsule. Refills: 0. Substitution permitted.[facility] #[id number] [phone]. .Zyrtec 10 mg tablet Take 1 tablet once a day for 15 days -- Dispense 15 tablet. Refills: 0. Substitutionpermitted.[facility] #[id number] [address] [place], [place] [phone]. . 2 General Instructions [facility] Emergency Department [address] [place] [address] Phone #: ext- [phone] 02/20/2021 14: 07 Patient: DAQUAN AMAYA Sex: Vinnie : 1950 Age: 70yhydroxyzine HCl 25 mg tablet Take 1 tablet twice a day for 5 days -- Anti-Itch. Dispense 10 tablet.Refills: 0. Substitution permitted.Pharmacy - [id number] - [address] [place], [place] [phone]. .Follow-up:Return to the emergency department as needed. Follow up with your healthcare provider in about twodays if not better. Call for an appointment.Understanding of the discharge instructions verbalized by patient. ADDITIONAL INFORMATIONPonataly Nunn have a rash and itching. This [...] That's why it's important 3 General Instructions [facility] Emergency Department [address] [place] [address] Phone #: ext- [phone] 02/20/2021 14:07 Patient: [...] to wash your pets, too. Don't use qnxb-ctw-voixqmp antibiotic creams such as neomycin or bacitracin. [...] an ice pack directly on the skin. Kaat-wcq-rvwprif products that have calamine lotion may also [...] swollen mouth or eyelids 4 General Instructions [facility] Emergency Department [address] [place] [address] Phone #: [phone]- [phone] 02/20/2021 14:07 Patient: DAQUAN AMAYA Sex: F : 1950 Age: 70y Rash [...] on your face,eyelids, mouth, throat, or tongue. [id number] [employer]. [address] [place] [address]. All rights reserved. This information is not [...] when your symptoms get 5 General Instructions [facility] Emergency Department [address] [place] [address] Phone #: ext- [phone] 02/20/2021 14:07 Patient: [...] or higher after 2 days on antibiotics [id number] [employer]. [address] [place] [address], [place] [address]. All rights reserved. This information is not intended as asubstitute for professional medical care. Always follow your healthcare professional's instructions. You have been given the following additional information: Poison Kirby Rash Cellulitis(Electronically signed by Tavon Manuel P.A.-C 02/21/2021 11:22) Name Value Range Interpretation Code Description Data Anisha rce(s) Supporting Document(s) ID Date Data Source [id number] 02/20/2021 02:07:00 PM EDT [facility] 1 Clinical Report - Nurses [facility] Emergency Department [address] [place] [address] Phone #: ext- [phone] 02/20/2021 14:07 Patient: DAQUAN AMAYA Sex: F : 1950 Age: 70yTRIAGEHistorian: patient. [...] 0/10. --14:42 02/20/21 Malcolm Monique R.N.15:11 02/20/21.Treatment [facility] [employer] [employer] ARCHITECT:(poison kirby scrub). --15:11 02/20/21 Malcolm Monique R.N.Weight: 97.5 kg stated. Height/Length: 62 inches Per Patient. BMI: 39.4. --14:35 02/20/21 Malcolm Monique R.N.MedicationsLisinopril Oral. --15:40 02/20/21 Fernando Lopez Labetalol HCl Oral. --15:40 02/20/21 Tavon Manuel P.A.-C NexIUM Oral. --15:40 02/20/21 Tavon Manuel P.A.-C Aspirin 81 Oral. --15:40 02/20/21 Tavon Manuel P.A.-C.AllergiesNo Known Drug Allergy. --15:35 02/20/21 Debbi Macario RN.PROBLEMS:Gastroesophageal Reflux Disease.GERD.Congestive Heart Failure.Dyspnea.Hypertension.Hyperthyroidism.GI Disease.Hypertension. --15:36 02/20/21 Debbi Macario RNUterine Cancer. --16:23 02/20/21 Malcolm Monique R.N. 2 Clinical Report - Nurses [facility] Emergency Department [address] [place] [address] Phone #: ext- [phone] 02/20/2021 14:07 Patient: DAQUAN AMAYA Sex: F : 1950 Age: 70y ADDITIONAL [...] on patient. --14:42 02/20/21 Malcolm Monique R.N.PHYSICAL PCEOSAIUEJ77:43 02/20/21. Ambulatory to room.GENERAL / NEURO / [...] Monique R.N. 3 Clinical Report - Nurses [facility] Emergency Department [address] [place] [address] Phone #: ext- [phone] 02/20/2021 14:07 Patient: DAQUAN AMAYA Sex: F [...] Patient verbalized understanding. Written instructions provided in Bur[place]ian. The patient was discharged by the physician temporary administrative assistant. She was discharged home. She left ambulatory and via private vehicle. Patient driving. --16:54 02/20/21 Malcolm Monique R.N. 16:53 02/20/21. BP: deferred. HR: deferred. RR: deferred. O2 saturation: deferred. Temp: deferred. Pain level now: 0/10. --16:54 02/20/21 Malcolm Monique R.N.Locked/Released at 02/20/2021 18:49 by Malcolm Monique R.N. Name Value Range Interpretation Code Description Data Anisha rce(s) Supporting Document(s) ID Date Data Source [id number] 02/20/2021 02:07:00 PM EDT [facility] 1 Clinical Report - Physicians/Mid Levels [facility] Emergency Department [address] [place] [address] Phone #: ext- [phone] 02/20/2021 14:07 Patient: [...] Repair. 2 Clinical Report - Physicians/Mid Levels [facility] Emergency Department [address] [place] [address] Phone #: ext- [phone] 02/20/2021 14:07 [id number] Sex: F : 1950 Age: 70y Ventral [...] complaints. 3 Clinical Report - Physicians/Mid Levels [facility] Emergency Department [address] [place] [address] Phone #: ext- [phone] 02/20/2021 14:07 Patient: DAQUAN AMAYA Sex: F [...] Oral. 4 Clinical Report - Physicians/Mid Levels [facility] Emergency Department [address] [place] [address] Phone #: ext- [phone] 02/20/2021 14:07 Patient: DAQUAN AMAYA [facility]#: [id number] Sex: F : 1950 Age: 70y Labetalol HCl Oral. Lisinopril Oral. NexIUM Oral. Prescription Medications: prednisone 50 mg tablet Take 1 tablet once a day with meals for 5 days -- start 7Cpdn47. Dispense 5 tablet. Refills: 0. Substitution permitted. [facility] #[id number] [place] [address] ; [place] [address]. . cephalexin 500 mg capsule Take 1 capsule three times a day for 7 days -- Start today. Dispense 21 capsule. Refills: 0. Substitution permitted. [facility] [employer] [facility] #[id number] ; [place] [address]. . Zyrtec 10 mg tablet Take 1 tablet once a day for 15 days -- Dispense 15 tablet. Refills: 0. Substitution permitted. [id number] [place] [address]. . hydroxyzine HCl 25 mg tablet Take 1 tablet twice a day for 5 days -- Anti-Itch. Dispense 10 tablet. Refills: 0. Substitution permitted. [facility] #[id number] [place] [address]. FaxNumber: [phone]. Follow-up: Return to the emergency department as [...] Antigen [place]SDOH This lab was ordered by [facility] and reported by [facility]. Procedure Social History Code Duration Value Status Description Data Source(s ) Smoking 06/26/2021 12:00:00 AM EDT Patient is a former smoker completed Patient is a former smoker [facility] ([facility]) Vital Signs ID Date Data Source UNK Name Value Range Interpretation Code Description Data Source(s) Body weight 220.00 [lb_av] 220.00 [lb_av] [facility] T ([facility]) Body height 63 [in_i] 63 [in_i] [facility]) 5'3" Body mass index (BMI) [Ratio] 39.0 kg/m2 39.0 k g/m2 [facility] ([facility]) Heart rate 60 /min 60 /min [facility] ([facility]) Systolic blood pressure--sitting 167 mm[Hg] 167 mm[Hg] [facility] ([facility]) CBP large cuff, Ra Diastolic blood pressure--sitting 96 mm[Hg] 96 mm[Hg] [facility] ([facility]) CBP large cuff, Ra Systolic blood pressure 197 mm[Hg] 197 mm[Hg] M EDENT (Mala Barrera MD) Diastolic blood pressure 104 mm[Hg] 104 mm[Hg] [facility] (Mala Barrera MD) Heart rate 76 /min 76 /min [facility] (Mala Barrera MD) Body height 62 [in_i] 62 [in_i] [facility] (Mala Barrera MD) 5'2" Body mass index (BMI) [Ratio] 40.1 kg/m2 40.1 k g/m2 [facility] (Mala Barrera MD) Body weight 219.00 [lb_av] 219.00 [lb_av] MEDEN T (Mala Barrera MD) Body temperature 97.7 [degF] 97.7 [degF] ALVARADO (Mala Barrera MD) Oxygen saturation in Arterial blood by Pulse oximetry 97 % 97 % [facility] (Mala Barrera MD)
--- OUTSIDE RECORDS SUMMARY | 2021-07-30 19:47 | CCD | Continuity of Care Document ---
Author Author Leila ORONA MD Organization Unknown Address [address] [facility], [place] [address] Phone [phone] Care Team Providers Care Other Spatial Scientist Name Role Phone Ellyn Mcpherson MD AUTM [phone] Glenn Barrera MD AUTM [phone] Problems Description No Information Available Social History [...] Exercise Type/Frequency Does housework twice a w [place] Exercise Type/Frequency Walks sporadically up/do wn stairs [...] mouth daily Unknown 06/25/2021 Vitamin D3 250mcg (46400 Ut) Capsu les 1-2 by mouth every day Unknown 06/25/2021 Nexium 24HR 20mg Tablets DR 2 by mouth every day Unknown 06/25/2021 Magnesium Oxide 400mg Tablets 1 by mouth once a day Glenn Barrera MD 06/25/2021 Eliquis 5mg Tablets 1 by mouth twice a day Josephine Broussard MD 06/25/20 21 Lisinopril 20mg Tablets 1 by mouth every [...] H/L Range Note Basic Metabolic Panel 06/20/2021 [facility] - not interfac ed (315)- - Glucose 147 High 70-100 Blood Urea Nitrogen 19 High 7-18 Creatinine 0.89 0.55-1.30 Sodium 141 136-145 Potassium 3.5 3.5-5.1 Chloride 106 98-107 Carbon Dioxide 30 21-32 Calcium 9.4 8.2-9.6 GFR (Calculated) >60.0 >32 Laboratory test finding 06/20/2021 [facility] - not interf aced (315)- - Magnesium Level 1.4 Low 1.8-2.4 Thyroid Stimulating Hormone 0.687 Free T4 1.12 CBC without Differential 06/20/2021 [facility] - not inter faced (315)- - White Blood Count 6.1 4.0-10.0 Red Blood Count 5.13 4.00-5.40 Platelets 203 150-450 Hemoglobin 15.5 Hematocrit 44.3 Procedures Date Code Description Status 06/26/2021 14884 Office/Outpatient New Moderate M DM 45-59 Minutes Completed 06/26/2021 22256 Arterial Pressure Wa veform Analysis For Assessment Of Central Art Completed 06/26/2021 25886 ECG 12-Lead Completed Medical Devices Description No [...] 06/26/2021 I25.10 Atherosclerotic hear t disease of [place] coronary artery without angina pectoris David Orona [...] Echocardiogram Transthoracic W Doppler And Color Flow, Ordered: 06/26/21 * I10 hypertension (arterial) (benign) (essential) (malignant) (primary) (systemic) * I44.0 Atrioventricular block, first degree * I25.10 Atherosclerotic heart disease of [place] coronary artery without angina pectoris* New Xrays:* PET Myocardial Perfusion Multi Study AT [facility], Ordered: 06/26/21 * I25.2 Old myocardial infarction * Z95.5 Presence of coronary angioplasty implant and graft * R94.31 Abnormal electrocardiogram [ECG] [EKG] * E83.42 Hypomagnesemia * Z71.3 Dietary counseling and surveillance * All * Follow up:* Follow-up in 6 months with physician restaurant assistant manager. Functional Status Functional Condition Comment Date Status Independent with all ADL's Activ e Mental Status Description No Information Available Referrals Description No Information Available
[2021-07-30] MEDS ORDERED: MAG-400T7 PO (20:40)
[2021-07-30 20:44] LABS: BASO % 0.2 % (0.0-1.0); EOS # 0.1 10^3/uL (0.0-0.5); EOS % 1.2 % (0.0-3.0); HEMOGLOBIN 14.6 g/dl (12.0-15.5); LYMPH # 2.5 10^3/uL (1.5-5.0); LYMPH % 48.8 % (24.0-44.0); MEAN CORPUSCULAR VOLUME 85.3 fl (80.0-96.0); MONO # 0.4 10^3/uL (0.0-0.8); MONO % 7.5 % (2.0-8.0); NEUTROPHILS # 2.2 10^3/uL (1.5-8.5); NEUTROPHILS % 42.1 % (36.0-66.0); PLATELET COUNT, AUTOMATED 186 10^3/uL (150-450); RED BLOOD COUNT 5.04 10^6/uL (4.00-5.40); WHITE BLOOD COUNT 5.2 10^3/uL (4.0-10.0)
--- NOTE | 2021-07-30 20:57 | REPVR ---
PROCEDURE INFORMATION: Exam: XR Chest Exam date and time: 07/30/2021 8:26 PM Age: 71 years old Clinical indication: Other: Chest pain TECHNIQUE: Imaging protocol: XR of the chest. Views: 1 view. COMPARISON: CR PORTABLE CHEST X-RAY 06/20/2021 6:24 AM FINDINGS: Lungs: Unremarkable. No consolidation. Pleural spaces: Unremarkable. No pleural effusion. No pneumothorax. Heart/Mediastinum: Unremarkable. No cardiomegaly. Bones/joints: Unremarkable. IMPRESSION: No acute findings. Electronically signed by: Duong Bauer On 07/30/2021 20:56:34 PM
[2021-07-30 21:00] LABS: BLOOD UREA NITROGEN 15 MG/DL (7-18); CALCIUM LEVEL 8.8 MG/DL (8.8-10.2); CARBON DIOXIDE LEVEL 27 MEQ/L (21-32); CHLORIDE LEVEL 109 MEQ/L (98-107); CREATININE FOR GFR 0.89 MG/DL (0.55-1.30); GLOMERULAR FILTRATION RATE > 60.0 (>39); GLUCOSE, FASTING 90 MG/DL (70-100); POTASSIUM SERUM 3.9 MEQ/L (3.5-5.1); SODIUM LEVEL 142 MEQ/L (136-145)
[2021-07-30 21:15] LABS: INR 1.1; PARTIAL THROMBOPLASTIN TIME 34.5 SECONDS (25.9-37.0); PROTHROMBIN TIME 14.6 SECONDS (12.7-14.5)
[2021-07-30] MEDS ORDERED: LABETALOL 100MG TAB PO ONE (21:35)
[2021-07-30] MEDS ORDERED: ISOVUE-370 76% 100ML VIAL As Ordered ONE (22:00)
--- NOTE | 2021-07-30 22:53 | REPVR ---
PROCEDURE INFORMATION: Exam: US Duplex Right Upper Extremity Veins, Limited Exam date and time: 07/30/2021 10:44 PM Age: 71 years old Clinical indication: Pain; Arm, upper; Right; Additional info: Rue pain R/O dvt TECHNIQUE: Imaging protocol: Real-time Duplex ultrasound of the Right Upper Extremity with 2-D mcleod scale, color Doppler flow and spectral waveform analysis with image documentation. Limited exam focused on the right upper extremity veins. COMPARISON: No relevant prior studies available. FINDINGS: Right deep veins: Unremarkable. Axillary and brachial veins are patent throughout without thrombus. Normal Doppler waveforms. Normal compressibility and/or augmentation response. Visualized internal jugular and subclavian veins are patent. Right superficial veins: Unremarkable. Visualized cephalic and basilic veins are patent without thrombus. Soft tissues: Unremarkable. IMPRESSION: No evidence of deep vein thrombosis. Electronically signed by: Joseluis Kaye On 07/30/2021 22:53:08 PM
--- NOTE | 2021-07-30 23:38 | REPVR ---
PROCEDURE INFORMATION: Exam: CTA Chest With Contrast Exam date and time: 07/30/2021 11:02 PM Age: 71 years old Clinical indication: Pain; Angina pectoris; Additional info: Right chest pain TECHNIQUE: Imaging protocol: Computed tomographic angiography of the chest with contrast. 3D rendering (Not supervised by radiologist): MIP and/or 3D reconstructed images were created by the technologist. Radiation optimization: All CT scans at this facility use at least one of these dose optimization techniques: automated exposure control; mA and/or kV adjustment per patient size (includes targeted exams where dose is matched to clinical indication); or iterative reconstruction. Contrast material: ISOVUE 370; Contrast volume: 75 ml; Contrast route: INTRAVENOUS (IV); COMPARISON: CR PORTABLE CHEST X-RAY 07/30/2021 8:20 PM FINDINGS: Pulmonary arteries: There is opacification of the pulmonary arteries with no evidence of pulmonary embolus. Aorta: There is opacification of the aorta which appears intact. Thyroid: There is a 3 cm x 2.4 cm nodule left lobe of the thyroid and recommend ultrasound for further evaluation of this. Lungs: There is an azygos lobe and vein. There is mild prominence of the interstitial markings throughout the lungs. The lungs are otherwise clear. Pleural spaces: There is no evidence of pneumothorax or pleural effusion. Heart: There is mild cardiomegaly. Diaphragm: There is a small hiatal hernia. Liver: There is a 1 cm low-density lesion of the right lobe of the liver and recommend correlation with ultrasound and dynamic contrast CT. Bones/joints: There is mild anterior osteophyte formation of the thoracic spine. Soft tissues: Unremarkable. IMPRESSION: 1. 3 cm nodule left lobe of the thyroid and recommend ultrasound for further evaluation. 2. 1 cm low-density lesion right lobe of the liver. Recommend correlation with ultrasound and CT with dynamic contrast enhancement. COMMENTS: Consistent with the [place] [employer]'s Incidental Findings Committee white paper (J Am Kenneth Radiol 2015): In patients aged 35 years and older with an incidental thyroid nodule equal to or greater than 1.[address], MRI or extrathyroidal US, further evaluation with dedicated thyroid US is recommended for patients with normal life expectancy and without comorbidities. For smaller nodules without suspicious features, no further evaluation or follow up is recommended. Electronically signed by: Joseluis Kaye On 07/30/2021 23:37:51 PM
[2021-07-30] MEDS ORDERED: APIXABAN 5 MG TAB (ELIQUIS) PO ONE (23:55)
[2021-07-30] MEDS ORDERED: ELIQ5TAB PO (23:58)
[2021-07-31] VITALS: BP 171/80
--- NOTE | 2021-07-31 19:00 | ECGEPIP ---
[facility] - ED Test Date: 2021-07-30 Pat Name: DAQUAN AMAYA Department: Room: - Gender: Female Strapper Operator: JEANNE : 1950 Requested By: MANUELA Coy Order Number: [id number] Reading MD: Ellyn Mcpherson Measurements Intervals Portia Rate: 61 P: 73 AK: 228 QRS: -11 QRSD: 78 T: 76 QT: 434 QTc: 436 Interpretive Statements Sinus rhythm with 1st degree AV block Inferior infarct , age undetermined Anterior infarct , age undetermined similar 06/20/21 Electronically Signed on 07-31-2021 18:59:58 EST by Ellyn Mcpherson
--- NOTE | 2021-08-01 14:15 | ED PDOC ---
Post-Departure Follow-Up dr landry faxed cta chest for fu Josephine Vitale MD Aug 01, 2021 14:15
== END 2021-07-31 00:46 | disposition home or self-care (01) ==
LOC: M ED 19:37
DX: M79.621 Pain in right upper arm (principal); E04.1 Nontoxic single thyroid nodule; I11.0 Hypertensive heart disease with heart failure; K76.9 Liver disease, unspecified; I44.0 Atrioventricular block, first degree; I50.9 Heart failure, unspecified; I48.91 Unspecified atrial fibrillation; Z79.899 Other long term (current) drug therapy; Z79.01 Long term (current) use of anticoagulants
CPT/HCPCS: 36415; 71045; 71275; 80048; 84484; 85025; 85610; 85730; 93005; 93041; 93971; 94760; 99285; Q9967

== ENCOUNTER 2022-10-09 10:33 | Emergency (ER) | payer MEDICARE, OTHER ==
[~2022-10-09] VITALS: Ht 160 cm; Wt 83.0 kg
[~2022-10-09 10:33] MED LIST changes: -LABE300T2 PO; +LABE300T55 PO; +MAG-400T7 PO
[2022-10-09 11:34] LABS: HEMATOCRIT 34.4 % (36.0-47.0); HEMOGLOBIN 11.8 g/dl (12.0-15.5); LYMPH # 0.5 10^3/uL (1.5-5.0); LYMPH % 6.5 % (24.0-44.0); MEAN CORPUSCULAR HEMOGLOBIN 30.3 pg (27.0-33.0); MEAN CORPUSCULAR HGB CONC 34.3 g/dl (32.0-36.5); MEAN CORPUSCULAR VOLUME 88.4 fl (80.0-96.0); MONO # 0.4 10^3/uL (0.0-0.8); PLATELET COUNT, AUTOMATED 206 10^3/uL (150-450); RED BLOOD COUNT 3.89 10^6/uL (4.00-5.40); WHITE BLOOD COUNT 7.9 10^3/uL (4.0-10.0)
[2022-10-09 11:58] LABS: ALBUMIN 3.5 G/DL (3.2-5.2); ALKALINE PHOSPHATASE 80 U/L (46-116); ALT/SGPT 50 U/L (7.0-40); AST/SGOT 51 U/L (<34); BILIRUBIN,TOTAL 0.6 MG/DL (0.3-1.2); BLOOD UREA NITROGEN 24 MG/DL (9-23); CALCIUM LEVEL 8.8 MG/DL (8.3-10.6); CARBON DIOXIDE LEVEL 23 MMOL/L (20-31); CHLORIDE LEVEL 109 MMOL/L (98-107); CREATININE FOR GFR 0.77 MG/DL (0.55-1.30); GLOMERULAR FILTRATION RATE > 60.0 (>39); GLUCOSE, FASTING 106 MG/DL (74-106); POTASSIUM SERUM 4.4 MMOL/L (3.5-5.1); SODIUM LEVEL 143 MMOL/L (136-145); TOTAL PROTEIN 6.3 G/DL (5.7-8.2)
[2022-10-09 12:37] LABS: MAGNESIUM LEVEL 2.3 MG/DL (1.8-2.4)
[2022-10-09] MEDS ORDERED: ISOVUE-370 76% 100ML VIAL As Ordered ONE (13:21)
[2022-10-09 15:07] VITALS: BP 134/84
== END 2022-10-09 15:07 | disposition home or self-care (01) ==
LOC: M ED 10:33
DX: I95.1 Orthostatic hypotension (principal); I48.91 Unspecified atrial fibrillation; I25.10 Atherosclerotic heart disease of native coronary artery without angina pectoris; Z95.5 Presence of coronary angioplasty implant and graft; Z85.42 Personal history of malignant neoplasm of other parts of uterus; Z79.01 Long term (current) use of anticoagulants; Z79.899 Other long term (current) drug therapy
CPT/HCPCS: 70450; 71045; 71275; 80053; 83735; 84484; 85025; 93005; 99284; Q9967

== ENCOUNTER → 2023-04-08 | Outpatient (CLI) | payer MEDICARE, OTHER ==
[~2023-04-08] MED LIST changes: +ASPI-161 PO; +ASPI-655 PO; +CALC1TAB26 PO; +LABE100T71 PO; +MAGN400T2 PO; +NEXI20CA PO; +NEXI20CA33 PO; +POTA-165 PO; +POTA10CA60 PO; +PROC10TA5 PO; +VITA100093 PO; +VITATAB73 PO; +XARE20TA PO
== END ==
LOC: M EKG 16:39
PROVIDERS: ATTEND Specialist
DX: C54.1 Malignant neoplasm of endometrium (principal)

== ENCOUNTER 2024-02-11 12:15 | Inpatient (IN) | payer MEDICARE, OTHER ==
[~2024-02-11] VITALS: Ht 160 cm; Wt 81.8 kg
[~2024-02-11 12:15] MED LIST changes: -ASPI-161 PO; +ASPI-615 PO; +ECOT81TA5 PO; +LABE100T40 PO; +LABE100T6 PO; -LABE100T71 PO; +LABE300T28 PO; -LABE300T55 PO; +LENV1CAP PO; -POTA10CA60 PO; +POTA10CA70 PO; +ROSU20TA61 PO
[2024-02-11] MEDS: ACETAMINOPHEN TAB 650MG DOSE (2X325MG) PO ONE (14:15)
[2024-02-11] MEDS: CEFEPIME HCL 2 GM in D5W MINI-BAG PLUS 50 ML IV ONE (14:15)
[2024-02-11 14:22] LABS: BASO % 0.1 % (0.0-1.0); HEMATOCRIT 44.4 % (36.0-47.0); HEMOGLOBIN 15.7 g/dl (12.0-15.5); LYMPH # 1.8 10^3/uL (1.5-5.0); LYMPH % 22.6 % (24.0-44.0); MEAN CORPUSCULAR HEMOGLOBIN 29.3 pg (27.0-33.0); MEAN CORPUSCULAR HGB CONC 35.4 g/dl (32.0-36.5); MEAN CORPUSCULAR VOLUME 82.8 fl (80.0-96.0); MONO # 0.7 10^3/uL (0.0-0.8); MONO % 8.9 % (2.0-8.0); NEUTROPHILS # 5.5 10^3/uL (1.5-8.5); NEUTROPHILS % 68.2 % (36.0-66.0); PLATELET COUNT, AUTOMATED 121 10^3/uL (150-450); RED BLOOD COUNT 5.36 10^6/uL (4.00-5.40); WHITE BLOOD COUNT 8.1 10^3/uL (4.0-10.0)
[2024-02-11 14:26] LABS: ERYTHROCYTE SEDIMENTATION RATE 21 mm/hr (0-30)
[2024-02-11 14:44] LABS: C REACTIVE PROTEIN QUANTITATIV 10.2 MG/DL (<1.0)
[2024-02-11 14:45] LABS: CREATININE FOR GFR 0.98 MG/DL (0.55-1.30); GLOMERULAR FILTRATION RATE 59.2 (>39); POTASSIUM SERUM 3.3 MMOL/L (3.5-5.1)
[2024-02-11] MEDS ORDERED: NORCO, ANEXSIA 5/325MG TABLET (HYDROcodone/ACETAMINOPHEN) PO PRN (16:30)
[2024-02-11] MEDS ORDERED: ACET-897 PO (16:37)
[2024-02-11] MEDS ORDERED: HOME MED LIST COMPLETE! XX SCH (16:40)
[2024-02-11 17:56] LABS: PROCALCITONIN 0.25 ng/ml
[2024-02-11] MEDS: POTASSIUM CHLORIDE 10MEQ SR TABLET PO ONE (18:13)
[2024-02-11 19:53] VITALS: BP 140/94; TEMP 97.5; O2SAT 97
[2024-02-11 20:43] LABS: ALBUMIN 3.6 G/DL (3.2-5.2); ALKALINE PHOSPHATASE 112 U/L (46-116); ALT/SGPT 19 U/L (7.0-40); AST/SGOT 40 U/L (<34); BILIRUBIN,DIRECT 0.8 MG/DL (<0.4); BILIRUBIN,TOTAL 2.3 MG/DL (0.3-1.2); MAGNESIUM LEVEL < 0.5 MG/DL (1.8-2.4); TOTAL PROTEIN 6.7 G/DL (5.7-8.2)
[2024-02-11] MEDS ORDERED: PROHANCE 279.3MG/ML 15ML VIAL As Ordered ONE (22:00)
[2024-02-11 22:39] VITALS: BP 139/73; TEMP 97.3; O2SAT 98
[2024-02-11] MEDS: LABETALOL 100MG TAB PO SCH (23:23)
[2024-02-11] MEDS: APIXABAN 5 MG TAB (ELIQUIS) PO SCH (23:23)
[2024-02-11] MEDS: MAGNESIUM OXIDE 400MG TAB (MAG-OX) PO ONE (23:24)
[2024-02-11] MEDS: CALCIUM/VITAMIN D 500 MG TAB PO SCH (23:25)
[2024-02-11] MEDS: ROSUVASTATIN 10 MG TAB (CRESTOR) PO SCH (23:25)
[2024-02-11] MEDS: CALCIUM GLUCONATE 1,000 MG in D5W MINI-BAG PLUS 100 ML IV ONE (23:29)
[2024-02-11] MEDS: CEFEPIME HCL 1 GM in D5W MINI-BAG PLUS 50 ML IV SCH (23:29)
[2024-02-11] MEDS: MAG SULF 1GM/100ML (MAG RUN) 1 GM in IV 1 EA IV SCH (23:30)
[2024-02-12 01:17] LABS: IONIZED CALCIUM 3.2 MG/DL (4.5-5.3)
[2024-02-12 01:45] LABS: BLOOD UREA NITROGEN 29 MG/DL (9-23); CALCIUM LEVEL 6.3 MG/DL (8.3-10.6); CARBON DIOXIDE LEVEL 28 MMOL/L (20-31); CHLORIDE LEVEL 102 MMOL/L (98-107); CREATININE FOR GFR 0.94 MG/DL (0.55-1.30); GLOMERULAR FILTRATION RATE > 60.0 (>39); GLUCOSE, FASTING 101 MG/DL (74-106); POTASSIUM SERUM 3.6 MMOL/L (3.5-5.1); SODIUM LEVEL 137 MMOL/L (136-145)
[2024-02-12] MEDS: CALCIUM CARBONATE 500 MG CHEW U/D PO ONE (03:09)
[2024-02-12] MEDS: MAG SULF 1GM/100ML (MAG RUN) 1 GM in IV 1 EA IV SCH (03:13)
[2024-02-12] MEDS: CALCIUM GLUCONATE 1,000 MG in D5W MINI-BAG PLUS 100 ML IV SCH (05:29)
[2024-02-12 07:53] LABS: PTH INTACT 98.6 PG/ML (18.5-88.0)
[2024-02-12 07:58] VITALS: BP 115/64; TEMP 97.4; O2SAT 95
[2024-02-12] MEDS: PANTOPRAZOLE 40MG TAB (PROTONIX) PO SCH (08:31)
[2024-02-12] MEDS: ASPIRIN 81MG ENTERIC TABLET PO SCH (08:31)
[2024-02-12] MEDS: ACETAMINOPHEN 500 MG TAB PO PRN (08:31)
[2024-02-12] MEDS: POTASSIUM CHLORIDE 10MEQ SR TABLET PO ONE (11:09)
[2024-02-12 12:22] VITALS: BP 118/59; TEMP 97.6; O2SAT 95
[2024-02-12 15:45] VITALS: BP 113/62; TEMP 97.2; O2SAT 95
[2024-02-12] MEDS: VANCOMYCIN HCL 1,000 MG, VIAL MATE ADAPTER 1 EACH in D5W 250 ML IV ONE (17:02)
[2024-02-12 19:14] VITALS: BP 135/67; TEMP 97.6; O2SAT 96
[2024-02-12] MEDS: CALCIUM CARBONATE 500 MG CHEW U/D PO PRN (19:49)
[2024-02-12] MEDS: VANCOMYCIN HCL 1,000 MG, VIAL MATE ADAPTER 1 EACH in D5W 250 ML IV SCH (20:27)
[2024-02-12 23:43] VITALS: BP 130/65; TEMP 97; O2SAT 96
[2024-02-13 03:54] VITALS: BP 100/59; TEMP 97; O2SAT 95
[2024-02-13 06:07] LABS: IONIZED CALCIUM 4.5 MG/DL (4.5-5.3)
[2024-02-13 06:12] LABS: HEMATOCRIT 38.2 % (36.0-47.0); MEAN CORPUSCULAR HEMOGLOBIN 29.4 pg (27.0-33.0); MEAN CORPUSCULAR HGB CONC 34.8 g/dl (32.0-36.5); MEAN CORPUSCULAR VOLUME 84.3 fl (80.0-96.0); PLATELET COUNT, AUTOMATED 131 10^3/uL (150-450); RED BLOOD COUNT 4.53 10^6/uL (4.00-5.40); WHITE BLOOD COUNT 5.7 10^3/uL (4.0-10.0)
[2024-02-13 06:13] LABS: HEMOGLOBIN 13.3 g/dl (12.0-15.5)
[2024-02-13 06:41] LABS: ALBUMIN 2.6 G/DL (3.2-5.2); CALCIUM LEVEL 8.1 MG/DL (8.3-10.6); GLOMERULAR FILTRATION RATE 57.9 (>39); MAGNESIUM LEVEL 2.4 MG/DL (1.8-2.4); POTASSIUM SERUM 4.9 MMOL/L (3.5-5.1); TOTAL PROTEIN 5.4 G/DL (5.7-8.2)
[2024-02-13 07:53] VITALS: BP 138/73; TEMP 97.9; O2SAT 96
[2024-02-13 09:01] VITALS: BP 116/66
[2024-02-13 09:45] LABS: C REACTIVE PROTEIN QUANTITATIV 11.4 MG/DL (<1.0)
[2024-02-13] MEDS: predniSONE 20 MG TAB PO SCH (13:18)
[2024-02-13 14:25] VITALS: BP 137/70; TEMP 97.1; O2SAT 97
[2024-02-13 21:09] VITALS: BP 118/78; TEMP 97.2; O2SAT 93
[2024-02-14] MEDS ORDERED: HYDROCORTISONE 1% OINTMENT 30GM TOP PRN (02:55)
[2024-02-14 04:21] VITALS: BP 124/80; TEMP 97.2; O2SAT 97
[2024-02-14 08:38] LABS: BASO % 0.1 % (0.0-1.0); HEMOGLOBIN 15.1 g/dl (12.0-15.5); LYMPH # 1.3 10^3/uL (1.5-5.0); LYMPH % 12.1 % (24.0-44.0); MEAN CORPUSCULAR HEMOGLOBIN 29.2 pg (27.0-33.0); MEAN CORPUSCULAR HGB CONC 34.3 g/dl (32.0-36.5); MEAN CORPUSCULAR VOLUME 85.1 fl (80.0-96.0); MONO # 0.4 10^3/uL (0.0-0.8); MONO % 3.9 % (2.0-8.0); NEUTROPHILS # 8.7 10^3/uL (1.5-8.5); NEUTROPHILS % 83.3 % (36.0-66.0); PLATELET COUNT, AUTOMATED 202 10^3/uL (150-450); RED BLOOD COUNT 5.17 10^6/uL (4.00-5.40); WHITE BLOOD COUNT 10.4 10^3/uL (4.0-10.0)
[2024-02-14 09:04] LABS: VANCOMYCIN LEVEL TROUGH 16.1 UG/ML (10.0-20.0)
[2024-02-14 09:12] LABS: ALBUMIN 3.2 G/DL (3.2-5.2); ALKALINE PHOSPHATASE 109 U/L (46-116); ALT/SGPT 20 U/L (7.0-40); AST/SGOT 24 U/L (<34); BILIRUBIN,TOTAL 0.8 MG/DL (0.3-1.2); BLOOD UREA NITROGEN 19 MG/DL (9-23); CALCIUM LEVEL 9.2 MG/DL (8.3-10.6); CARBON DIOXIDE LEVEL 25 MMOL/L (20-31); CHLORIDE LEVEL 106 MMOL/L (98-107); CREATININE FOR GFR 0.84 MG/DL (0.55-1.30); GLOMERULAR FILTRATION RATE > 60.0 (>39); GLUCOSE, FASTING 110 MG/DL (74-106); SODIUM LEVEL 140 MMOL/L (136-145); TOTAL PROTEIN 6.6 G/DL (5.7-8.2)
[2024-02-14] MEDS: VANCOMYCIN HCL 750 MG, VIAL MATE ADAPTER 1 EACH in D5W 250 ML IV SCH (09:32)
[2024-02-14 10:00] VITALS: BP 108/71; TEMP 98; O2SAT 98
[2024-02-14 12:00] VITALS: BP 108/71; TEMP 98; O2SAT 98
[2024-02-14] MEDS: CEFDINIR 300 MG CAP (OMNICEF) PO SCH (12:06)
[2024-02-14 14:00] VITALS: BP 112/70; TEMP 98; O2SAT 97
[2024-02-14 20:00] VITALS: BP 115/69; TEMP 97.7; O2SAT 97
[2024-02-14] MEDS: DOXYCYCLINE HYCLATE 100MG TABLET PO SCH (20:24)
[2024-02-15 04:00] VITALS: BP 131/74; TEMP 97.2; O2SAT 97
[2024-02-15 06:24] LABS: BASO % 0.1 % (0.0-1.0); HEMOGLOBIN 13.3 g/dl (12.0-15.5); LYMPH # 0.9 10^3/uL (1.5-5.0); LYMPH % 9.3 % (24.0-44.0); MEAN CORPUSCULAR HEMOGLOBIN 29.1 pg (27.0-33.0); MEAN CORPUSCULAR HGB CONC 34.1 g/dl (32.0-36.5); MEAN CORPUSCULAR VOLUME 85.3 fl (80.0-96.0); MONO # 0.5 10^3/uL (0.0-0.8); MONO % 5.2 % (2.0-8.0); NEUTROPHILS # 8.2 10^3/uL (1.5-8.5); NEUTROPHILS % 84.8 % (36.0-66.0); PLATELET COUNT, AUTOMATED 198 10^3/uL (150-450); RED BLOOD COUNT 4.57 10^6/uL (4.00-5.40); WHITE BLOOD COUNT 9.7 10^3/uL (4.0-10.0)
[2024-02-15 06:39] LABS: BLOOD UREA NITROGEN 29 MG/DL (9-23); CALCIUM LEVEL 8.6 MG/DL (8.3-10.6); CARBON DIOXIDE LEVEL 27 MMOL/L (20-31); CHLORIDE LEVEL 106 MMOL/L (98-107); CREATININE FOR GFR 0.87 MG/DL (0.55-1.30); GLOMERULAR FILTRATION RATE > 60.0 (>39); GLUCOSE, FASTING 126 MG/DL (74-106); POTASSIUM SERUM 4.7 MMOL/L (3.5-5.1); SODIUM LEVEL 137 MMOL/L (136-145)
[2024-02-15] MEDS ORDERED: CEFD300CAP PO (08:40)
[2024-02-15 08:41] VITALS: BP 134/76
[2024-02-15] MEDS ORDERED: DOXY-440 PO (08:43)
[2024-02-15] MEDS ORDERED: BACI1CAP PO (08:43)
[2024-02-15] MEDS ORDERED: PRED20TA PO (08:43)
[2024-02-15] MEDS ORDERED: PRED5TA PO (08:48)
[2024-02-15] MEDS ORDERED: PRIL20TA2 PO (08:53)
[2024-02-15 12:00] VITALS: BP 136/77; TEMP 97.2; O2SAT 96
== END 2024-02-15 14:18 | disposition home or self-care (01) | DRG 603 ==
LOC: M ED 12:15 → EDBD 12:15 → M ED INP 16:29 → M MS5PR 18:49 → M PCU 23:00 → OBSVTOIN 02-13 08:52 → M MSPAV 02-13 15:41
PROVIDERS: ADMIT Internal Medicine; ATTEND General Practice
DX: L03.116 Cellulitis of left lower limb (principal); C78.5 Secondary malignant neoplasm of large intestine and rectum; C54.1 Malignant neoplasm of endometrium; I48.0 Paroxysmal atrial fibrillation; I50.9 Heart failure, unspecified; I25.10 Atherosclerotic heart disease of native coronary artery without angina pectoris; E83.51 Hypocalcemia; M65.9 Synovitis and tenosynovitis, unspecified; K21.9 Gastro-esophageal reflux disease without esophagitis; E83.42 Hypomagnesemia; M60.9 Myositis, unspecified; I11.0 Hypertensive heart disease with heart failure; Z92.3 Personal history of irradiation; Z92.21 Personal history of antineoplastic chemotherapy; Z79.01 Long term (current) use of anticoagulants; Z79.82 Long term (current) use of aspirin; Z79.899 Other long term (current) drug therapy; Z95.5 Presence of coronary angioplasty implant and graft; E86.0 Dehydration; I25.2 Old myocardial infarction; Z90.79 Acquired absence of other genital organ(s); Z87.891 Personal history of nicotine dependence

== ENCOUNTER 2024-05-25 11:07 | Day surgery (SDC) | payer MEDICARE, OTHER ==
[~2024-05-25] VITALS: Ht 160 cm; Wt 79.4 kg
[~2024-05-25 11:07] MED LIST changes: +ACET-897 PO; +BACI1CAP PO; +CEFD300CAP PO; +DOXY-440 PO; +LENV1CAP; +LENV4CAP PO; +NS 1,000 ML IV ONE; +PRED20TA PO; +PRED5TA PO; +PRIL20TA2 PO; -ROSU20TA61 PO; +ROSU20TA86 PO
[2024-05-25] MEDS ORDERED: propofoL 200 MG/20 ML VIAL As Ordered ONE (14:34)
[2024-05-25 15:10] VITALS: BP 130/66; TEMP 96.6; O2SAT 98
== END 2024-05-25 15:18 | disposition home or self-care (01) ==
LOC: M OPP 11:07
PROVIDERS: ATTEND Internal Medicine Gastroenterology
DX: Z12.11 Encounter for screening for malignant neoplasm of colon (principal); D12.2 Benign neoplasm of ascending colon; K57.30 Diverticulosis of large intestine without perforation or abscess without bleeding; K64.8 Other hemorrhoids; Z80.0 Family history of malignant neoplasm of digestive organs

== ENCOUNTER → 2024-08-02 | Outpatient (REF) | payer MEDICARE, OTHER ==
[~2024-08-02] MED LIST changes: +LISI10TA22 PO; -NS 1,000 ML IV ONE
[2024-08-02 09:19] LABS: HEMOGLOBIN A1c 5.6 % (4.0-6.0)
[2024-08-02 09:23] LABS: CHOLESTEROL RISK RATIO 2.27 (<5); HDL CHOLESTEROL 68.2 MG/DL (>40); LDL CHOLESTEROL 58.8 MG/DL (<100); NON-HDL-C 86.8 MG/DL
[2024-08-02 09:25] LABS: THYROID STIMULATING HORMONE 4.299 uIU/ML (0.55-4.78)
== END ==
LOC: M LAB REF 08:27
PROVIDERS: ATTEND Internal Medicine
DX: Z00.00 Encounter for general adult medical examination without abnormal findings (principal); I10 Essential (primary) hypertension; Z79.899 Other long term (current) drug therapy

== ENCOUNTER 2025-02-15 15:37 | Inpatient (IN) | payer MEDICARE, OTHER ==
[~2025-02-15] VITALS: Ht 160 cm; Wt 59.0 kg
[~2025-02-15 15:37] MED LIST changes: +LEVO50TA5; +LEVO75TA4 PO; +METR-265; +ONDA-282 PO
[2025-02-15] MEDS: NS (Normal Saline) 0.9% 1,000 ML IV ONE (17:35)
[2025-02-15 18:08] LABS: BASO # 0.0 10^3/uL (0.0-0.2); BASO % 0.0 % (0.0-1.0); EOS # 0.0 10^3/uL (0.0-0.5); EOS % 0.0 % (0.0-3.0); LYMPH # 1.9 10^3/uL (1.5-5.0); LYMPH % 25.4 % (24.0-44.0); MONO # 0.5 10^3/uL (0.0-0.8); MONO % 6.9 % (2.0-8.0); NEUTROPHILS # 5.0 10^3/uL (1.5-8.5); NEUTROPHILS % 67.4 % (36.0-66.0); PLATELET COUNT, AUTOMATED 191 10^3/uL (150-450)
[2025-02-15 18:23] LABS: KETONE, URINE AUTO RFX 1+ mg/dL (NEGATIVE); LEUKOCYTE ESTERASE UR AUTO RFX 3+ (NEGATIVE); MUCUS, URINE RFX LARGE (NEGATIVE); NITRITE, URINE AUTO RFX POSITIVE (NEGATIVE); RBC, URINE AUTO RFX 6 /HPF (0-3); SQUAM EPITHELIAL CELL UR AURFX 2 /HPF (0-6); WBC, URINE AUTO RFX TNTC /HPF (0-3)
[2025-02-15] MEDS: ONDANSETRON 4MG 2ML VIAL IV ONE ×2 (18:24→22:10)
[2025-02-15 18:38] LABS: ALT/SGPT 25 U/L (7.0-40); AST/SGOT 75 U/L (<34); CALCIUM LEVEL 10.3 MG/DL (8.3-10.6); CARBON DIOXIDE LEVEL 25 MMOL/L (20-31); CHLORIDE LEVEL 96 MMOL/L (98-107); CREATININE FOR GFR 0.69 MG/DL (0.55-1.30); GLOMERULAR FILTRATION RATE > 90.0 (>39); MAGNESIUM LEVEL 1.6 MG/DL (1.8-2.4); POTASSIUM SERUM 5.0 MMOL/L (3.5-5.1); SODIUM LEVEL 136 MMOL/L (136-145)
[2025-02-15] MEDS: cefTRIAXone SOD 1 GM in DEXTROSE 5% (D5W) ADV/MINI-BAG 50 ML IV ONE (18:52)
[2025-02-15] MEDS ORDERED: PRAD150C6 PO (19:32)
[2025-02-15] MEDS ORDERED: HOME MED LIST COMPLETE! XX SCH (19:35)
[2025-02-15] MEDS: NS (Normal Saline) 0.9% 1,000 ML IV SCH (22:40)
[2025-02-15] MEDS: NITROFURANTOIN 100 MG CAP PO SCH (23:11)
[2025-02-16 03:53] LABS: CALCIUM LEVEL 8.0 MG/DL (8.3-10.6); CARBON DIOXIDE LEVEL 24 MMOL/L (20-31); CHLORIDE LEVEL 101 MMOL/L (98-107); CREATININE FOR GFR 0.58 MG/DL (0.55-1.30); GLOMERULAR FILTRATION RATE > 90.0 (>39); POTASSIUM SERUM 3.6 MMOL/L (3.5-5.1); SODIUM LEVEL 139 MMOL/L (136-145)
[2025-02-16 04:15] LABS: MAGNESIUM LEVEL 1.3 MG/DL (1.8-2.4)
[2025-02-16] MEDS: MAG SULF 1GM/100ML (MAG RUN) 1 GM in IV 1 EA IV STA (05:02)
[2025-02-16] MEDS: LEVOTHYROXINE 75 MCG TABLET (0.075 MG) PO SCH (06:00)
[2025-02-16] MEDS: MAGNESIUM OXIDE 400 MG TAB PO SCH (09:00)
[2025-02-16] MEDS: PANTOPRAZOLE 40MG TAB PO SCH (09:00)
[2025-02-16] MEDS: ASPIRIN 81 MG ENTERIC TABLET PO SCH (09:00)
[2025-02-16] MEDS: ONDANSETRON 4MG 2ML VIAL IV PRN (09:23)
[2025-02-16] MEDS ORDERED: MAALOX 30 ML SUSP *UDC PO PRN (10:25)
[2025-02-16] MEDS ORDERED: ACETAMINOPHEN 325 MG TAB PO PRN (10:25)
[2025-02-16] MEDS: MAG SULF 1GM/100ML (MAG RUN) 1 GM in IV 1 EA IV SCH (11:00)
[2025-02-16] MEDS: cefTRIAXone SOD 1 GM in DEXTROSE 5% (D5W) ADV/MINI-BAG 50 ML IV SCH (16:00)
[2025-02-16 18:02] VITALS: BP 137/93; TEMP 97.4; O2SAT 100
[2025-02-16 20:00] VITALS: BP 140/81; TEMP 97.4; O2SAT 99
[2025-02-16] MEDS: ROSUVASTATIN 10 MG TAB PO SCH (20:07)
[2025-02-16] MEDS: DABIGATRAN ETEXILATE 75 MG CAP PO SCH (20:08)
[2025-02-16] MEDS: LABETALOL 100 MG TAB PO SCH (20:08)
[2025-02-17 04:17] VITALS: BP 134/84; TEMP 98.1; O2SAT 99
[2025-02-17 06:30] LABS: BASO # 0.0 10^3/uL (0.0-0.2); BASO % 0.2 % (0.0-1.0); EOS # 0.0 10^3/uL (0.0-0.5); EOS % 0.2 % (0.0-3.0); LYMPH # 1.5 10^3/uL (1.5-5.0); LYMPH % 25.9 % (24.0-44.0); MONO # 0.5 10^3/uL (0.0-0.8); MONO % 8.5 % (2.0-8.0); NEUTROPHILS # 3.7 10^3/uL (1.5-8.5); NEUTROPHILS % 65.0 % (36.0-66.0); PLATELET COUNT, AUTOMATED 113 10^3/uL (150-450)
[2025-02-17 07:13] LABS: CALCIUM LEVEL 7.7 MG/DL (8.3-10.6); CARBON DIOXIDE LEVEL 23 MMOL/L (20-31); CHLORIDE LEVEL 101 MMOL/L (98-107); CREATININE FOR GFR 0.51 MG/DL (0.55-1.30); GLOMERULAR FILTRATION RATE > 90.0 (>39); MAGNESIUM LEVEL 1.5 MG/DL (1.8-2.4); POTASSIUM SERUM 2.7 MMOL/L (3.5-5.1); SODIUM LEVEL 138 MMOL/L (136-145)
[2025-02-17 08:00] VITALS: BP 119/82; TEMP 97.9; O2SAT 98
[2025-02-17] MEDS: MAG SULF 1GM/100ML (MAG RUN) 1 GM in IV 1 EA IV SCH (08:41)
[2025-02-17] MEDS ORDERED: LENVATINIB PO SCH (09:00)
[2025-02-17] MEDS: POTASSIUM CHLORIDE 10MEQ SR TABLET PO ONE ×2 (09:02→11:41)
[2025-02-17 12:00] VITALS: BP 109/66; TEMP 96.8; O2SAT 96
[2025-02-17] MEDS ORDERED: POTASSIUM CHLORIDE INJ 20 MEQ in LR 1,000 ML IV SCH (12:00)
[2025-02-17] MEDS: KCL 10MEQ/100ML SWI (KRUN) 10 MEQ in IV 1 EA IV SCH (12:49)
[2025-02-17] MEDS: POTASSIUM CHLORIDE INJ 20 MEQ in LR 1,000 ML IV SCH (15:53)
[2025-02-17 17:33] LABS: CARBON DIOXIDE LEVEL 24.0 MMOL/L (20-31); CHLORIDE LEVEL 99.0 MMOL/L (98-107); MAGNESIUM LEVEL 2.7 MG/DL (1.8-2.4); POTASSIUM SERUM 3.8 MMOL/L (3.5-5.1); SODIUM LEVEL 137.0 MMOL/L (136-145)
[2025-02-17 20:00] VITALS: BP 110/62; TEMP 98.1; O2SAT 95
[2025-02-18 04:00] VITALS: BP 135/86; TEMP 97.6; O2SAT 97
[2025-02-18 06:21] LABS: BASO # 0.0 10^3/uL (0.0-0.2); BASO % 0.2 % (0.0-1.0); EOS # 0.0 10^3/uL (0.0-0.5); EOS % 0.2 % (0.0-3.0); LYMPH # 1.3 10^3/uL (1.5-5.0); LYMPH % 28.4 % (24.0-44.0); MONO # 0.4 10^3/uL (0.0-0.8); MONO % 8.2 % (2.0-8.0); NEUTROPHILS # 2.9 10^3/uL (1.5-8.5); NEUTROPHILS % 62.8 % (36.0-66.0); PLATELET COUNT, AUTOMATED 110 10^3/uL (150-450)
[2025-02-18 06:59] LABS: ALT/SGPT 17 U/L (7.0-40); AST/SGOT 34 U/L (<34); CALCIUM LEVEL 8.1 MG/DL (8.3-10.6); CARBON DIOXIDE LEVEL 25 MMOL/L (20-31); CHLORIDE LEVEL 99 MMOL/L (98-107); CREATININE FOR GFR 0.48 MG/DL (0.55-1.30); GLOMERULAR FILTRATION RATE > 90.0 (>39); MAGNESIUM LEVEL 1.9 MG/DL (1.8-2.4); POTASSIUM SERUM 3.8 MMOL/L (3.5-5.1); SODIUM LEVEL 135 MMOL/L (136-145)
[2025-02-18 08:45] VITALS: BP 125/78; TEMP 97.4; O2SAT 96
[2025-02-18] MEDS: POTASSIUM CHLORIDE 10MEQ SR TABLET PO SCH (08:47)
[2025-02-18] MEDS: MAGNESIUM OXIDE 400 MG TAB PO SCH (08:49)
[2025-02-18 15:35] VITALS: BP 123/72; TEMP 97.1; O2SAT 96
[2025-02-18 20:00] VITALS: BP 127/73; TEMP 98; O2SAT 98
[2025-02-19 04:00] VITALS: BP 139/94; TEMP 98.1; O2SAT 97
[2025-02-19 07:01] LABS: BASO # 0.0 10^3/uL (0.0-0.2); BASO % 0.3 % (0.0-1.0); EOS # 0.0 10^3/uL (0.0-0.5); EOS % 0.5 % (0.0-3.0); LYMPH # 1.4 10^3/uL (1.5-5.0); LYMPH % 36.9 % (24.0-44.0); MONO # 0.3 10^3/uL (0.0-0.8); MONO % 8.5 % (2.0-8.0); NEUTROPHILS # 2.1 10^3/uL (1.5-8.5); NEUTROPHILS % 53.5 % (36.0-66.0); PLATELET COUNT, AUTOMATED 104 10^3/uL (150-450)
[2025-02-19 07:06] LABS: CALCIUM LEVEL 8.8 MG/DL (8.3-10.6); CARBON DIOXIDE LEVEL 25 MMOL/L (20-31); CHLORIDE LEVEL 97 MMOL/L (98-107); CREATININE FOR GFR 0.56 MG/DL (0.55-1.30); GLOMERULAR FILTRATION RATE > 90.0 (>39); MAGNESIUM LEVEL 1.6 MG/DL (1.8-2.4); POTASSIUM SERUM 3.8 MMOL/L (3.5-5.1); SODIUM LEVEL 134 MMOL/L (136-145)
[2025-02-19 08:03] VITALS: BP 140/82; TEMP 98.2; O2SAT 97
[2025-02-19] MEDS: MAGNESIUM OXIDE 400 MG TAB PO SCH (09:00)
[2025-02-19 12:10] VITALS: BP 111/66; TEMP 98.2; O2SAT 96
[2025-02-19 20:45] VITALS: BP 92/60; TEMP 97; O2SAT 98
[2025-02-19 20:48] VITALS: BP 88/60
[2025-02-19] MEDS: NS (Normal Saline) 0.9% 1,000 ML IV SCH (21:45)
[2025-02-20 00:01] VITALS: BP 119/76
[2025-02-20 04:59] VITALS: BP 103/62; TEMP 97.9; O2SAT 96
[2025-02-20 06:47] LABS: BASO # 0.0 10^3/uL (0.0-0.2); BASO % 0.3 % (0.0-1.0); EOS # 0.0 10^3/uL (0.0-0.5); EOS % 0.8 % (0.0-3.0); LYMPH # 1.6 10^3/uL (1.5-5.0); LYMPH % 39.8 % (24.0-44.0); MONO # 0.4 10^3/uL (0.0-0.8); MONO % 9.3 % (2.0-8.0); NEUTROPHILS # 2.0 10^3/uL (1.5-8.5); NEUTROPHILS % 49.8 % (36.0-66.0)
[2025-02-20 07:10] LABS: CALCIUM LEVEL 8.4 MG/DL (8.3-10.6); CARBON DIOXIDE LEVEL 27 MMOL/L (20-31); CHLORIDE LEVEL 99 MMOL/L (98-107); CREATININE FOR GFR 0.68 MG/DL (0.55-1.30); GLOMERULAR FILTRATION RATE > 90.0 (>39); MAGNESIUM LEVEL 1.6 MG/DL (1.8-2.4); POTASSIUM SERUM 4.3 MMOL/L (3.5-5.1); SODIUM LEVEL 136 MMOL/L (136-145)
[2025-02-20 07:28] LABS: PLATELET COUNT, AUTOMATED 85 10^3/uL (150-450)
[2025-02-20 08:07] VITALS: BP 119/74; TEMP 97.3; O2SAT 96
[2025-02-20] MEDS: MAG SULF 1GM/100ML (MAG RUN) 1 GM in IV 1 EA IV SCH (09:24)
[2025-02-20 11:50] VITALS: BP 127/77; TEMP 97; O2SAT 97
[2025-02-20 20:03] VITALS: BP 116/68; TEMP 98.3; O2SAT 96
[2025-02-21 03:45] VITALS: BP 162/94; TEMP 97; O2SAT 96
[2025-02-21 03:50] VITALS: BP_SYST 106; BP_SYST 128; BP_SYST 162; BP_DIAS 68; BP_DIAS 90; BP_DIAS 94
[2025-02-21 12:00] VITALS: BP 101/61; TEMP 97.3; O2SAT 97
[2025-02-21 20:00] VITALS: BP 100/61; TEMP 97.3; O2SAT 96
[2025-02-22 05:00] VITALS: BP 126/69; TEMP 97.1; O2SAT 97
[2025-02-22 07:48] VITALS: BP 136/73; TEMP 97; O2SAT 97
[2025-02-22 09:00] VITALS: BP 119/62
[2025-02-22] MEDS: MOM 30 ML SUSPENSION UDC PO PRN (10:38)
[2025-02-22 12:00] VITALS: BP 125/82; TEMP 96.4; O2SAT 97
[2025-02-22] MEDS ORDERED: MAGN400T33 PO (13:36)
[2025-02-22] MEDS ORDERED: ONDA-282 PO (15:24)
== END 2025-02-22 15:25 | disposition home or self-care (01) | DRG 640 ==
LOC: M ED 15:37 → M ED INP 02-16 10:25 → M MS4PR 02-16 17:45
PROVIDERS: ADMIT Student in an Organized Health Care Education/Training Program; ATTEND Student in an Organized Health Care Education/Training Program
DX: E83.42 Hypomagnesemia (principal); E43 Unspecified severe protein-calorie malnutrition; R64 Cachexia; N39.0 Urinary tract infection, site not specified; E87.1 Hypo-osmolality and hyponatremia; C78.5 Secondary malignant neoplasm of large intestine and rectum; I50.9 Heart failure, unspecified; I25.10 Atherosclerotic heart disease of native coronary artery without angina pectoris; I95.9 Hypotension, unspecified; E03.9 Hypothyroidism, unspecified; C54.1 Malignant neoplasm of endometrium; R11.2 Nausea with vomiting, unspecified; I11.0 Hypertensive heart disease with heart failure; K21.9 Gastro-esophageal reflux disease without esophagitis; E87.6 Hypokalemia; T45.1X5A Adverse effect of antineoplastic and immunosuppressive drugs, initial encounter; Z68.23 Body mass index [BMI] 23.0-23.9, adult; Z95.5 Presence of coronary angioplasty implant and graft; Z95.828 Presence of other vascular implants and grafts; Z79.82 Long term (current) use of aspirin; Z79.890 Hormone replacement therapy; Z79.899 Other long term (current) drug therapy